=== PATIENT | female | born 1940 | race Caucasian/White ===

== ENCOUNTER 2017-10-05 09:30 | Emergency (ER) | payer MEDICARE ==
[2017-10-05 10:44] LABS: ABS Basophils 0.1 10^3/ul (0-0.2); ABS Eosinophils 0.1 10^3/ul (0-0.6); ABS Lymphocytes 1.8 10^3/ul (1.0-4.8); ABS Monocytes 0.5 10^3/ul (0-0.8); ABS Neutrophils 6.4 10^3/ul (1.5-7.7); ABS Nucleated RBC 0 10^3/ul; Eosinophil % 1.6 % (0-6); Hematocrit 45 % (35-47); Hemoglobin 15.1 g/dl (12.0-16.0); Lymphocyte % 19.7 % (25-47); Mean Corpuscular HGB Conc 34 g/dl (31-36); Mean Corpuscular Hemoglobin 30 pg (27-31); Mean Corpuscular Volume 90 fL (80-97); Mean Platelet Volume 7.1 um3 (7.4-10.4); Nucleated Red Blood Cells % 0.2; Platelet Count 296 10^3/ul (150-450); Red Blood Count 4.98 10^6/ul (4.00-5.40); Red Cell Distribution Width 13 % (10.5-15); White Blood Count 8.9 10^3/ul (3.5-10.8)
[2017-10-05 11:05] LABS: EGFR Non-African American 80.7 (>60)
--- NOTE | 2017-10-05 11:20 | ED ---
Hypertension - HPI Summary HPI Summary: This patient is a 77 year old F presenting to [facility] accompanied by daughter Hayley with a chief complaint of hypertension since last night 10/04/17. Pt administered a clonidine patch last night with worsening symptoms, the prescription started. Pt endorses lightheadedness, dizziness, difficulty ambulating, shakiness, GLASS, constipation. She denies chest pain or pressure. Dr. Cage removed clonidine patch. Pt takes miralax nightly. Endorses constipation. 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 pt missed atenolol 2 days ago, missed two doses. - History of Current Complaint Chief Complaint: EDHypertension Stated Complaint: HIGH BP Time Seen by Provider: 10/05/17 10:00 Hx Obtained From: Patient Onset/Duration: Started Hours Ago Timing: Constant, Lasting Hours Aggravating Factor(s): Other: - Klonadine Alleviating Factor(s): Nothing Associated Signs & Symptoms: Headaches, Weakness, Dizziness - Allergies/Home Medications Allergies/Adverse Reactions: Allergies Allergy/AdvReac Type Severity Reaction Status Date / Time No Known Allergies Allergy Verified 10/05/17 09:46 Home Medications: Home Medications Ascorbic Acid TAB* [Vitamin C TAB*] 500 mg PO DAILY 10/05/17 [History Confirmed 10/05/17] Cholecalciferol TAB* [Vitamin D TAB*] 1,000 unit PO DAILY 10/05/17 [History Confirmed 10/05/17] Hydrochlorothiazide TAB* [Hydrodiuril TAB*] 25 mg PO DAILY 10/05/17 [History Confirmed 10/05/17] Lisinopril TAB* [Prinivil TAB*] 40 mg PO QPM 10/05/17 [History Confirmed ] Vitamin B Complex CAP* [B Complex CAP*] 1 cap PO DAILY 10/05/17 [History Confirmed 10/05/17] cloNIDine 0.1 MG PATCH* [Baiygimz-Lir-7 0.1 mg Patch*] 1 patch TOPICAL WEEKLY 10/05/17 [History Confirmed 10/05/17] PMH/Surg Hx/FS Hx/Imm Hx Cardiovascular History: Reports: Hx Hypertension Musculoskeletal History: Reports: Hx Back Problems Sensory History: Reports: Hx Contacts or Glasses Opthamlomology History: Reports: Hx Contacts or Glasses EENT History: Denies: Hx Deafness Infectious Disease History: No Infectious Disease History: Denies: Traveled Outside the [place] in Last 30 Days - Family History Known Family History: Positive: Cardiac Disease - MS's, Hypertension, Diabetes - Social History Occupation: Retired Lives: Alone Alcohol Use: Rare Substance Use Type: Reports: None Smoking Status (MU): Heavy Every Day Tobacco Smoker Review of Systems Negative: Fever, Chills Negative: Erythema Negative: Sore Throat Negative: Chest Pain Negative: Shortness Of Breath, Cough Positive: Other - constipation. Negative: Abdominal Pain, Vomiting, Nausea Negative: dysuria, hematuria Negative: Myalgia, Edema Negative: Rash Neurological: Other - dizziness, lightheadedness Positive: Headache, Weakness All Other Systems Reviewed And Are Negative: Yes Physical Exam - Summary Physical Exam Summary: Constitutional: Well-developed, Well-nourished, Alert. (-) Distressed Skin: Warm, Dry HENT: Normocephalic; Atraumatic Eyes: Conjunctiva normal Neck: Musculoskeletal ROM normal neck. (-) JVD, (-) Stridor, (-) Tracheal deviation Cardio: Rhythm regular, pulses approximately 100, Heart sounds normal; Intact distal pulses; The pedal pulses are 2+ and symmetric. Radial pulses are 2+ and symmetric. (-) Murmur Pulmonary/Chest wall: Effort normal. (-) Respiratory distress, (-) Wheezes, (-) Rales Abd: Soft, (-), epigastric tenderness, (-) Distension, (-) Guarding, (-) Rebound Musculoskeletal: (-) Edema Lymph: (-) Cervical adenopathy Neuro: Alert, Oriented x3 Psych: Mood and affect Normal Triage Information Reviewed: Yes Vital Signs On Initial Exam: Initial Vitals Temp Pulse Resp BP Pulse Ox 98.7 F 100 19 216/129 97 10/05/17 09:37 10/05/17 09:37 10/05/17 09:37 10/05/17 09:37 10/05/17 09:37 Vital Signs Reviewed: Yes Diagnostics - Vital Signs Vital Signs Temp Pulse Resp BP Pulse Ox 10/05/17 09:37 98.7 F 100 19 216/129 97 - Laboratory Lab Results: Lab Results 10/05/17 10/05/17 10/05/17 Range/Units 10:30 10:30 10:30 WBC 8.9 (3.5-10.8) 10^3/ul RBC 4.98 (4.00-5.40) 10^6/ul Hgb 15.1 (12.0-16.0) g/dl Hct 45 (35-47) % MCV 90 (80-97) fL MCH 30 (27-31) pg MCHC 34 (31-36) g/dl RDW 13 (10.5-15) % Plt Count 296 (150-450) 10^3/ul MPV 7.1 L (7.4-10.4) um3 Neut % (Auto) 71.9 (38-83) % Lymph % (Auto) 19.7 L (25-47) % [place] % (Auto) 6.0 (0-7) % Eos % (Auto) 1.6 (0-6) % Baso % (Auto) 0.8 (0-2) % Absolute Neuts (auto) 6.4 (1.5-7.7) 10^3/ul Absolute Lymphs (auto) 1.8 (1.0-4.8) 10^3/ul Absolute Monos (auto) 0.5 (0-0.8) 10^3/ul Absolute Eos (auto) 0.1 (0-0.6) 10^3/ul Absolute Basos (auto) 0.1 (0-0.2) 10^3/ul Absolute Nucleated RBC 0 10^3/ul Nucleated RBC % 0.2 Sodium 139 (135-145) mmol/L Potassium 3.3 L (3.5-5.0) mmol/L Chloride 99 L (101-111) mmol/L Carbon Dioxide 33 H (22-32) mmol/L Anion Gap 7 (2-11) mmol/L BUN 13 (6-24) mg/dL Creatinine 0.70 (0.51-0.95) mg/dL Est GFR ( Amer) 97.7 (>60) Est GFR (Non-Af Amer) 80.7 (>60) BUN/Creatinine Ratio 18.6 (8-20) Glucose 118 H (70-100) mg/dL Lactic Acid 0.7 (0.5-2.0) mmol/L Calcium 9.8 (8.6-10.3) mg/dL Total Bilirubin 0.60 (0.2-1.0) mg/dL AST 24 (13-39) U/L ALT 16 (7-52) U/L Alkaline Phosphatase 63 (34-104) U/L Troponin I 0.00 (<0.04) ng/mL B-Natriuretic Peptide ( - 100) pg/mL Total Protein 7.2 (6.4-8.9) g/dL Albumin 4.2 (3.2-5.2) g/dL Globulin 3.0 (2-4) g/dL Albumin/Globulin Ratio 1.4 (1-3) 10/05/17 Range/Units 10:30 WBC (3.5-10.8) 10^3/ul RBC (4.00-5.40) 10^6/ul Hgb (12.0-16.0) g/dl Hct (35-47) % MCV (80-97) fL MCH (27-31) pg MCHC (31-36) g/dl RDW (10.5-15) % Plt Count (150-450) 10^3/ul MPV (7.4-10.4) um3 Neut % (Auto) (38-83) % Lymph % (Auto) (25-47) % [place] % (Auto) (0-7) % Eos % (Auto) (0-6) % Baso % (Auto) (0-2) % Absolute Neuts (auto) (1.5-7.7) 10^3/ul Absolute Lymphs (auto) (1.0-4.8) 10^3/ul Absolute Monos (auto) (0-0.8) 10^3/ul Absolute Eos (auto) (0-0.6) 10^3/ul Absolute Basos (auto) (0-0.2) 10^3/ul Absolute Nucleated RBC 10^3/ul Nucleated RBC % Sodium (135-145) mmol/L Potassium (3.5-5.0) mmol/L Chloride (101-111) mmol/L Carbon Dioxide (22-32) mmol/L Anion Gap (2-11) mmol/L BUN (6-24) mg/dL Creatinine (0.51-0.95) mg/dL Est GFR ( Amer) (>60) Est GFR (Non-Af Amer) (>60) BUN/Creatinine Ratio (8-20) Glucose (70-100) mg/dL Lactic Acid (0.5-2.0) mmol/L Calcium (8.6-10.3) mg/dL Total Bilirubin (0.2-1.0) mg/dL AST (13-39) U/L ALT (7-52) U/L Alkaline Phosphatase (34-104) U/L Troponin I (<0.04) ng/mL B-Natriuretic Peptide 366 H ( - 100) pg/mL Total Protein (6.4-8.9) g/dL Albumin (3.2-5.2) g/dL Globulin (2-4) g/dL Albumin/Globulin Ratio (1-3) Result Diagrams: 10/05/17 10:30 10/05/17 10:30 Lab Statement: Any lab studies that have been ordered have been reviewed, and results considered in the medical decision making process. - EKG 1009 Cardiac Rate: NL - 89 EKG Rhythm: Sinus Rhythm ST Segment: Normal EKG Interpretation: No STEMI Re-Evaluation - Re-Evaluation First Eval Re-Evaluation Time: 11:25 Change: Unchanged Comment: Discussed new blood pressure med, pt preferred trial med in ED, wants to avoid observation if possible. Second Eval Re-Evaluation Time: 14:06 Change: Improved Comment: BP now 155 systolic, lower when pt does not pay attention to it. Hypertension Course/Dx - Course Course Of Treatment: Discussed new blood pressure med, pt preferred trial med in ED, wants to avoid observation if possible. EKG revealed nl sinus rythym 89 , no STEMI. PT shows elevated BNP, glucose. Pt was given metoprolol. Metoprolol appears effective, pt asymptomatic in the ED. BP down to 155 systolic , even lower when pt does not pay attention to it. - Diagnoses Provider Diagnoses: Uncontrolled hypertension, Elevated brain natriuretic peptide (BNP) level Discharge - Sign-Out/Discharge Documenting (check all that apply): Patient Departure - Discharge Plan Condition: Stable Prescriptions: Metoprolol Tartrate TAB* [Lopressor TAB*] 50 mg PO BID #28 tab Patient Education Materials: Hypertension (ED) Referrals: Ayesha Feldman MD [Primary Care Provider] - 4 Days Additional Instructions: RETURN TO EMERGENCY DEPARTMENT FOR ANY CHANGING OR WORSENING SYMPTOMS. - Billing Disposition and Condition Condition: STABLE
[2017-10-05] MEDS ORDERED: Metoprolol Tartrate TAB* 50 mg PO ONE (11:23)
[2017-10-05 15:49] VITALS: BP 166/98
== END 2017-10-05 15:51 | disposition home or self-care (01) ==
LOC: ED 09:30
DX: R51 Headache (principal); R53.1 Weakness; R42 Dizziness and giddiness; K59.00 Constipation, unspecified; F17.210 Nicotine dependence, cigarettes, uncomplicated; I10 Essential (primary) hypertension; R79.89 Other specified abnormal findings of blood chemistry
CPT/HCPCS: 36415; 80053; 83605; 83880; 84484; 85025; 93005; 99282; A9270-GY

== ENCOUNTER 2018-10-04 14:25 | Emergency (ER) | payer MEDICARE ==
--- NOTE | 2018-10-04 15:00 | UC ---
Shortness of Breath HPI - HPI Summary HPI Summary: 1 WEEK OF PROGRESSIVELY WORSENING SHORTNESS OF BREATH, CHEST TIGHTNESS AND FATIGUE. HAS SOME SINUS PRESSURE SO THOUGHT SHE WAS COMING DOWN WITH BRONCHITIS ALTHOUGH SHE HAS NO COUGH. FEELS INTERMITTENTLY NAUSEATED AND SWEATY. HAS A H/O HTN AND AFIB. IS ON ELIQUIS. - History of Current Complaint Chief Complaint: UCRespiratory Stated Complaint: SHORT OF BREATH Time Seen by Provider: 10/04/18 14:37 Hx Obtained From: Patient Onset/Duration: Gradual Onset, Lasting Days, Still Present Timing: Constant Current Severity: Moderate Dyspnea At: Rest Aggravating Factors: Nothing Alleviating Factors: Nothing Associated Signs & Symptoms: Positive: Chest Pain Unrelated to Cough, Nasal Congestion. Negative: Fever - Allergy/Home Medications Allergies/Adverse Reactions: Allergies Allergy/AdvReac Type Severity Reaction Status Date / Time acetaminophen Allergy Tachycardia Verified 10/04/18 14:34 Home Medications: Home Medications Aspirin/Caffeine [Anacin 400-32 mg Tablet] 0.5 - 1 tab PO DAILY PRN 10/04/18 [ History Confirmed 10/04/18] Bismuth Subsalicylate [Pepto-Bismol] 1 tab PO DAILY 10/04/18 [History Confirmed 10/04/18] Cbd Oil 2 drop PO ONCE PRN 10/04/18 [History Confirmed 10/04/18] Docusate Sodium 1 tab PO DAILY 10/04/18 [History Confirmed 10/04/18] Naproxen Sodium [Aleve] 1 - 2 tab PO BID PRN 10/04/18 [History Confirmed ] Polyethylene Glycol 3350 [Miralax] 1 dose PO DAILY PRN 10/04/18 [History Confirmed 10/04/18] Simethicone [Gas-X] 1 tab PO DAILY 10/04/18 [History Confirmed 10/04/18] diphenhydrAMINE HCl [Benadryl Allergy] 1 tab PO DAILY PRN 10/04/18 [History Confirmed 10/04/18] PMH/Surg Hx/FS Hx/Imm Hx Cardiovascular History: Hypertension, Atrial Fibrillation - Surgical History Surgical History: Yes Surgery Procedure, Year, and Place: NECK SUGERY WITH HARDWARE. LEFT WRIST WITH HARDWARE. BREAST IMPLANTS. BILATERAL CATARACTS. VEIN IN LEFT LEG REMOVED. APPENDIX. TUMOR REMOVED FROM ABDOMIN DURING . MOLES REMOVED. HEMMORHOID SURGERY - Family History Known Family History: Positive: Cardiac Disease - CO's, Hypertension, Diabetes - Social History Alcohol Use: Rare Substance Use Type: None Smoking Status (MU): Former Smoker Amount Used/How Often: 10 cigarettes/day Review of Systems All Other Systems Reviewed And Are Negative: Yes Constitutional: Positive: Fatigue ENT: Positive: Sinus Congestion Respiratory: Positive: Shortness Of Breath. Negative: Cough Cardiovascular: Positive: Chest Pain Gastrointestinal: Positive: Nausea Genitourinary: Positive: Negative Physical Exam Triage Information Reviewed: Yes Appearance: Well-Appearing, No Pain Distress, Well-Nourished Vital Signs: Initial Vital Signs Temp 97.9 F 10/04/18 14:27 Pulse 97 10/04/18 14:27 Resp 18 10/04/18 14:27 BP 196/97 10/04/18 14:27 Pulse Ox 98 10/04/18 14:27 Vital Signs Reviewed: Yes Eyes: Positive: Conjunctiva Clear ENT: Positive: Hearing grossly normal Neck: Positive: Supple Respiratory Exam: Normal Cardiovascular: Positive: Other: - IRREGULARLY IRREGULAR Abdomen Description: Positive: Soft Musculoskeletal: Positive: No Edema Neurological: Positive: Muscle Tone Normal Psychological: Positive: Normal Response To Family, Age Appropriate Behavior Skin: Negative: Rashes Diagnostics - EKG Cardiac Rate: NL - 95BPM Cardiac Rhythm: AFib: Old Shortness of Breath Dx - Course Course Of Treatment: PT IN AFIB. SYMPTOMATIC - FEELS SOB AT REST, HAS ORTHOPNEA, CHEST TIGHTNESS. BP DANGEROUSLY ELEVATED. TO [facility] BY AMBULANCE. - Differential Dx/Diagnosis Provider Diagnosis: Atrial fibrillation, Shortness of breath - Physician Notification/Consults Discussed Patient Care With: Veronica Helms - TO [facility] BY AMBULANCE Time Discussed With Above Provider: 14:57 Instructed by Provider To: MD Will See In ED Discharge - Sign-Out/Discharge Documenting (check all that apply): Patient Departure All imaging exams completed and their final reports reviewed: No Studies - Discharge Plan Condition: Stable Disposition: TRANS HIGHER LVL OF CARE FAC Referrals: Ayesha Feldman MD [Primary Care Provider] - - Billing Disposition and Condition Condition: STABLE Disposition: Trans Higher Lvl of Care Fac
[2018-10-04 15:08] VITALS: BP 200/100
== END 2018-10-04 15:17 | disposition short-term general hospital (02) ==
LOC: UCEAST 14:25
DX: I48.91 Unspecified atrial fibrillation (principal); R06.02 Shortness of breath; I10 Essential (primary) hypertension; Z87.891 Personal history of nicotine dependence; Z79.82 Long term (current) use of aspirin; Z79.01 Long term (current) use of anticoagulants
CPT/HCPCS: 93005; 99213; G0463

== ENCOUNTER 2018-10-04 15:41 | Emergency (ER) | payer MEDICARE ==
[2018-10-04] MEDS ORDERED: Labetalol IV* 5 MG/ML 20 ML VIAL IV PUSH ONE (16:00)
[2018-10-04] MEDS ORDERED: Aspirin 81 mg CHEW TAB* 81 MG TAB.CHEW PO ONE (16:01)
--- NOTE | 2018-10-04 16:01 | ED ---
HPI Chest Pain - HPI Summary HPI Summary: The patient is an 78 y/o F presenting to [facility] with a chief complaint of gradual onset left anterior CP over the last few days. She additionally reports SOB, diaphoresis, dizziness, blurred vision, nausea, fevers, chills, rhinorrhea , ear pain, and headache. She denies cough and sore throat. The aching pain is currently rate 2/10 in severity. There are no aggravating or alleviating factors. She also notes that her BP has been high despite taking medications. States she has a learning development specialist appointment tomorrow with Dr. Almaraz. Hx of Afib ( treated with Eliquis), HTN, spinal stenosis. No cardiac surgery. FHx of cardiac disease with IN, HTN, DM. Former smoker, rare EtOH, no substance use. - History of Current Complaint Chief Complaint: EDChestPainROMI Time Seen by Provider: 10/04/18 15:54 Hx Obtained From: Patient Onset/Duration: Started Days Ago, Still Present Timing: Lasting Days Initial Severity: Mild Current Severity: Mild Pain Intensity: 2 Pain Scale Used: 0-10 Numeric Chest Pain Location: Left Anterior Chest Pain Radiates: No Character: Dull/Aching Aggravating Factor(s): Nothing Alleviating Factor(s): Nothing Associated Signs and Symptoms: Positive: Chest Pain, Headaches, Dizziness, Shortness of Breath, Fever, Chills, Nausea, Other: - POSITIVE: rhinorrhea; NEGATIVE: sore throat. Negative: Cough - Allergy/Home Medications Allergies/Adverse Reactions: Allergies Allergy/AdvReac Type Severity Reaction Status Date / Time acetaminophen Allergy Tachycardia Verified 10/04/18 14:34 PMH/Surg Hx/FS Hx/Imm Hx Endocrine/Hematology History: Denies: Hx Diabetes Cardiovascular History: Reports: Hx Hypertension Denies: Hx Hypercholesterolemia, Hx Pacemaker/ICD Comment Only: Other Cardiovascular Problems/Disorders - Taking Eliquis History: Denies: Hx Renal Disease Musculoskeletal History: Reports: Hx Back Problems Sensory History: Reports: Hx Contacts or Glasses Denies: Hx Deafness, Hx Hearing Aid Opthamlomology History: Reports: Hx Contacts or Glasses Neurological History: Reports: Other Neuro Impairments/Disorders - spinal stenosis, PAIN CLINIC PT Psychiatric History: Reports: Hx Panic Disorder - PANIC ATTACKS - Surgical History Surgery Procedure, Year, and Place: NECK SUGERY WITH HARDWARE. LEFT WRIST WITH HARDWARE. BREAST IMPLANTS. BILATERAL CATARACTS. VEIN IN LEFT LEG REMOVED. APPENDIX. TUMOR REMOVED FROM ABDOMIN DURING . MOLES REMOVED. HEMMORHOID SURGERY Infectious Disease History: No Infectious Disease History: Denies: Traveled Outside the [place] in Last 30 Days - Family History Known Family History: Positive: Cardiac Disease - IN's, Hypertension, Diabetes - Social History Alcohol Use: Rare Hx Substance Use: No Substance Use Type: Reports: None Hx Tobacco Use: No Smoking Status (MU): Former Smoker Amount Used/How Often: 10 cigarettes/day Review of Systems Positive: Fever, Chills, Skin Diaphoresis Positive: Blurred Vision Positive: Ear Ache, Nasal Discharge. Negative: Sore Throat Positive: Chest Pain - left anterior Positive: Shortness Of Breath. Negative: Cough Positive: Nausea. Negative: Vomiting Neurological: Other - dizziness Positive: Headache All Other Systems Reviewed And Are Negative: Yes Physical Exam - Summary Physical Exam Summary: VITAL SIGNS: Reviewed. GENERAL: Patient is a well-developed and nourished female who is lying comfortable in the stretcher. Patient is not in any acute respiratory distress. HEAD AND FACE: No signs of trauma. No ecchymosis, hematomas or skull depressions. No sinus tenderness. EYES: PERRLA, EOMI x 2, No injected conjunctiva, no nystagmus. EARS: Hearing grossly intact. Ear canals and tympanic membranes are within normal limits. MOUTH: Oropharynx within normal limits. NECK: Supple, trachea is midline, no adenopathy, no JVD, no carotid bruit, no c- spine tenderness, neck with full ROM. CHEST: Symmetric, no tenderness at palpation. LUNGS: Clear to auscultation bilaterally. No wheezing or crackles. CVS: Regular rate and rhythm, S1 and S2 present, no murmurs or gallops appreciated. ABDOMEN: Soft, non-tender. No signs of distention. No rebound, no guarding, and no masses palpated. Bowel sounds are normal. EXTREMITIES: FROM in all major joints, no edema, no cyanosis or clubbing. NEURO: Alert and oriented x 3. No acute neurological deficits. Speech is normal and follows commands. SKIN: Dry and warm. Triage Information Reviewed: Yes Vital Signs On Initial Exam: Initial Vitals Temp Pulse Resp BP Pulse Ox 97.8 F 92 18 198/112 98 10/04/18 15:48 10/04/18 15:48 10/04/18 15:48 10/04/18 15:48 10/04/18 15:48 Vital Signs Reviewed: Yes Diagnostics - Vital Signs Vital Signs Temp Pulse Resp BP Pulse Ox 10/04/18 15:48 97.8 F 92 18 198/112 98 - Laboratory Result Diagrams: 10/04/18 16:23 10/04/18 16:23 Lab Statement: Any lab studies that have been ordered have been reviewed, and results considered in the medical decision making process. - Radiology CXR Radiology Interpretation Completed By: Radiologist Summary of Radiographic Findings: No active cardiopulmonary disease is noted. ED physician has reviewed this radiology report. - EKG 1549 Cardiac Rate: Other Rate - 95 BPM EKG Rhythm: Atrial Fibrillation Summary of EKG Findings: No ST elevations. Re-Evaluation - Re-Evaluation First Eval Re-Evaluation Time: 17:30 Change: Improved Comment: The patient's chest pain has resolved. Chest Pain Course/Dx - Course Assessment/Plan: The patient is an 78 y/o F presenting to [facility] with a chief complaint of gradual onset left anterior CP over the last few days. She additionally reports SOB, diaphoresis, dizziness, blurred vision, nausea, fevers , chills, rhinorrhea, ear pain, and headache. She denies cough and sore throat. The aching pain is currently rate 2/10 in severity. There are no aggravating or alleviating factors. She also notes that her BP has been high despite taking medications. States she has a learning development specialist appointment tomorrow with Dr. Almaraz. Hx of Afib (treated with Eliquis), HTN, spinal stenosis. No cardiac surgery. FHx of cardiac disease with IN, HTN, DM. Former smoker, rare EtOH, no substance use. In the ED course, the patient was placed on a panel monitor, IV access was obtained, and IV fluids were started. Blood work without any significant abnormality except for WBCs of 11.3, INR of 1.23, PTT of 39.3, chloride of 98, glucose of 101, and BNP of 285. The patients first troponin is 0.00. EKG shows a normal sinus rhythm without any significant elevations. Chest x-ray impression: No active cardiopulmonary disease is noted. In the ED course, the patients blood pressure is elevated; therefore, the patient was given 1 dose of labetalol. The patients chest pain and hypertension has resolved. Right now, the patient is asymptomatic the chest pain 0 out of 10. Blood pressure is 131/78. Patient is awaiting the second troponin 4 hours apart , therefore the patient will be signed out to Dr. Sims to follow-up the troponin. If its negative, the patient can be discharged home with follow-up with PCP. - Diagnoses Provider Diagnoses: Chest pain, Uncontrolled hypertension Discharge - Sign-Out/Discharge Documenting (check all that apply): Sign-Out Patient Signing out patient TO: Kimo Sims - Patient is a sign-out at shift change at 1900 on 10/04/2018, from Dr. Lawson to Dr. Sims, pending repeat troponin and disposition. Patient Received Moderate/Deep Sedation with Procedure: No - Discharge Plan Referrals: Ayesha Feldman MD [Primary Care Provider] - - Attestation Statements Document Initiated by Shy: Yes Documenting Scribe: Christa Powell Provider For Whom Shy is Documenting (Include Credential): Dr. Santino Lawson MD Scribe Attestation: Christa Flores scribed for Dr. Santino Lawson MD on 10/04/18 at 1830. Scribe Documentation Reviewed: Yes Provider Attestation: The documentation as recorded by the Christa rodriguez accurately reflects the service I personally performed and the decisions made by me, Dr. Santino Lawson MD Status of Scribgalina Document: Ready
[2018-10-04 16:48] LABS: INR 1.23 (0.82-1.09)
[2018-10-04 16:50] LABS: ABS Basophils 0.1 10^3/ul (0-0.2); ABS Eosinophils 0.3 10^3/ul (0-0.6); ABS Monocytes 0.8 10^3/ul (0-0.8); ABS Neutrophils 8.2 10^3/ul (1.5-7.7); Eosinophil % 2.4 %; Hematocrit 43 % (35-47); Hemoglobin 14.4 g/dL (12.0-16.0); Lymphocyte % 17.9 %; Mean Corpuscular HGB Conc 34 g/dL (31-36); Mean Corpuscular Hemoglobin 31 pg (27-31); Mean Corpuscular Volume 93 fL (80-97); Mean Platelet Volume 7.2 fL (7.4-10.4); Platelet Count 341 10^3/uL (150-450); Red Blood Count 4.59 10^6 /uL (3.70-4.87); Red Cell Distribution Width 13 % (10-15); White Blood Count 11.3 10^3/uL (3.5-10.8)
[2018-10-04 17:00] LABS: Albumin 4.2 g/dL (3.2-5.2); Albumin/Globulin Ratio 1.5 (1-3); BUN/Creatinine Ratio 25.4 (8-20); Calcium 9.9 mg/dL (8.6-10.3); EGFR African American 95.8 (>60); EGFR Non-African American 79.2 (>60); Globulin 2.8 g/dL (2-4); Potassium 3.9 mmol/L (3.5-5.0); Total Bilirubin 0.5 mg/dL (0.2-1.0)
[2018-10-04 17:16] LABS: CKMB ng/mL 2.6 ng/mL (0.6-6.3)
--- NOTE | 2018-10-04 19:06 | ED ---
Progress - Progress Note Progress Note: Pt is a signout from Dr. Lawson at 1900 on 10/04/18 pending second troponin results. Re-Evaluation - Re-Evaluation First Eval Re-Evaluation Time: 17:30 Change: Improved Course/Dx - Course Course Of Treatment: Pt is a signout from Dr. Lawson at 1900 on 10/04/18 pending second troponin results. The pt's second troponin is 0.00. The pt will be d/c' ed with a dx of chest pain and uncontrolled hypertension, and she is stable and agreeable with this plan. - Diagnoses Provider Diagnoses: Chest pain, Uncontrolled hypertension Discharge - Sign-Out/Discharge Documenting (check all that apply): Patient Departure, Receiving Sign-Out Receiving patient FROM: Santino Lawson Patient Received Moderate/Deep Sedation with Procedure: No - Discharge Plan Condition: Good Disposition: HOME Patient Education Materials: Chest Pain (ED) Print Language: CROATIAN Referrals: Ayesha Feldman MD [Primary Care Provider] - 3 Days Additional Instructions: Please follow up with your primary care provider within the next 1-3 days. Return to the emergency department with any new or worsening symptoms. - Attestation Statements Document Initiated by Scribe: Yes Documenting Scribe: Shirin Sylvester Provider For Whom Scribe is Documenting (Include Credential): Kimo Sims MD. Scribe Attestation: Shirin Flores, scribed for Kimo Sims MD. on 10/04/18 at 1925. Status of Scribe Document: Ready
[2018-10-04 20:00] VITALS: BP 128/95
== END 2018-10-04 20:00 | disposition home or self-care (01) ==
LOC: ED 15:41
DX: R07.89 Other chest pain (principal); I10 Essential (primary) hypertension; I48.91 Unspecified atrial fibrillation; Z79.01 Long term (current) use of anticoagulants; R51 Headache; R42 Dizziness and giddiness; R06.02 Shortness of breath; R50.9 Fever, unspecified; R11.0 Nausea; R61 Generalized hyperhidrosis; J34.89 Other specified disorders of nose and nasal sinuses; Z88.6 Allergy status to analgesic agent; Z87.891 Personal history of nicotine dependence
CPT/HCPCS: 36415; 71045; 80053; 82550; 82553; 83880; 84443; 84484; 85025; 85610; 85730; 93005; 96374; 99283; A9270-GY

== ENCOUNTER 2019-01-01 11:00 | Observation (INO) | payer MEDICARE ==
[2019-01-01] MEDS ORDERED: NS 0.9% 1000 ML** 1,000 ML IV ONE (11:06)
[2019-01-01] MEDS ORDERED: cefTRIAXone(*) 1 GM in NS 0.9% 50 ML* 50 ML IVPB ONE (11:10)
--- OUTSIDE RECORDS SUMMARY | 2019-01-01 11:10 | XMS REPORT | Continuity of Care Document ---
:1940 External Reference #:[id number] Author Name Zack Lopez M.D. (transmitted by agent of provider Christa Meyers) Address [address] [place] [address] Care Team Providers Name Role Phone Ayesha Singh MD - Family Medicine Care Team Information Cotton Header [phone] Problems Active Problems Provider Date Atherosclerosis of renal artery Zack Lopez M.D. Onset: 11/15/2018 Atherosclerosis of arteries of the Zack Lopez M.D. Onset: 11/15/2018 extremities Social History Type Date Description Comments Sex Unknown Tobacco Use Start: Unknown Light tobacco smoker (10 or fewer cigarettes/day) Smoking Status Reviewed: 11/15/18 Light tobacco smoker (10 or fewer cigarettes/day) ETOH Use Occasionally consumes alcohol Recreational Drug Use Denies Drug Use Tobacco Use Start: Unknown End: Patient is a former smoker quit 09/30/18 Unknown Exercise Type/Frequency Walks daily Exercise Type/Frequency stretching Exercise Type/Frequency Does housework daily Allergies, Adverse Reactions, Alerts Active Allergies Reaction Severity Comments Date Acetaminophen tachycardia 01/23/2018 Clonidine 02/07/2018 Amlodipine 03/08/2018 Lisinopril cough 03/08/2018 Medications Active Medications SIG Qnty Indications Ordering Date Provider Labetalol HCL Take one tablet by 30tabs I48.91 Jackson [place] 100mg Tablets mouth every 12 Hobbs, DO 9 hours as needed FACC for palpitations or elevated heart rate over 100 beats a minute Irbesartan take one tablet by 90tabs I10 Jackson [place]on 300mg Tablets mouth daily Hobbs, DO 8 FACC Spironolactone 1 by mouth every 90tabs I10 Jackson S. 25mg Tablets day Hobbs, DO 8 FACC Eliquis 1 tablet by mouth 60tabs I48.91 Jackson S. 2.5mg Tablets twice a day. Hobbs, DO 8 FACC Aleve 1-2 by mouth twice Unknown 220mg Capsules a day as needed 0 Anacin take 1/2 to 1 Unknown 400-32mg Tablets ttablet daily as 0 needed for back pain or headache Benadryl Allergy 1 tab as needed Unknown 25mg Capsules 0 Docusate Sodium 1 tab every 12 Unknown 100mg Capsules hours as needed 0 for constipation Hydrochlorothiazide 1 by mouth every Unknown 25mg day 0 Tablets Metoprolol Tartrate take 1 tablet PO Unknown 50mg 2x day at 8 am/8pm 0 Tablets along with 25mg as directed Miralax 17 gram with h20 Unknown 3350NF Packet once a day 0 Vitamin C 1 by mouth every Unknown 500mg Chewtabs day 0 Vitamin D3 1 by mouth every Unknown 1000Unit Capsules day 0 Pepto-Bismol give 10ml by mouth Unknown 262mg/15ML as needed for each 0 Suspension loose stool Gas-X Ultra Strength Unknown 180mg 0 Capsules Immunizations Description No Information Available Vital Signs Date Vital Result Comment 11/15/2018 11:30am Height 63 inches 5'3" Weight 152.25 lb with sandals Heart Rate 78 /min left rad irregular BP Systolic Sitting 154 mmHg Lue reg cuff rechecked x2 BP Diastolic Sitting 100 mmHg Lue reg cuff rechecked x2 BMI (Body Mass Index) 27.0 kg/m2 10/05/2018 2:07pm Height 63 inches 5'3" Weight 152.00 lb Heart Rate 88 /min BP Systolic Sitting 134 mmHg Lue reg cuff BP Diastolic Sitting 82 mmHg Lue reg cuff BP Systolic Standing 132 mmHg Lue BP Diastolic Standing 86 mmHg Lue Respiratory Rate 18 /min BMI (Body Mass Index) 26.9 kg/m2 Ejection Fraction 50-55% 02/14/18 Results Description No Information Available Procedures Date Code Description Status 10/05/2018 17395 EKG Tracing & Interpretation Completed Medical Devices Description No Information Available Encounters Type Date Location Provider Dx Diagnosis Office Visit 11/15/2018 [facility] Zack Lopez, I70.223 [facility] [place] 11:15a [facility] Luana arteries of extrm w rest pain, bilateral legs I70.1 Atherosclerosis of renal artery Office Visit 10/05/2018 2:40p [facility] Jackson Pitts I48.91 Unspecified atrial [facility] Hobbs, DO fibrillation FAC Z72.0 Tobacco use I11.9 Hypertensive heart disease without heart failure I73.9 Peripheral vascular disease, unspecified I27.20 Pulmonary hypertension, unspecified I10 Essential (primary) hypertension Assessments Date Code Description Provider 11/15/2018 I70.223 Atherosclerosis of [place] arteries of Zack Lopez M.D. extremities with rest pain, bilateral legs 11/15/2018 I70.1 Atherosclerosis of renal artery Zack Lopez M.D. 10/05/2018 I48.91 Unspecified atrial fibrillation Jackson Hobbs, DO FAC 10/05/2018 Z72.0 Tobacco use Jackson Hobbs, DO FACC 10/05/2018 I11.9 Hypertensive heart disease without heart Jackson Hobbs, DO FACC failure 10/05/2018 I73.9 Peripheral vascular disease, unspecified Jackson Hobbs, DO FACC 10/05/2018 I27.20 Pulmonary hypertension, unspecified Jackson [place] Hobbs, DO FACC 10/05/2018 I10 Essential (primary) hypertension Jackson Hobbs, DO [facility] Plan of Treatment 11/15/2018 - Zack Lopez M.D.I70.223 Atherosclerosis of [place] arteries of extremities with rest pain, bilateral legsNew Xrays:Cta Abd Aorta & Runoff, Ordered: 11/15/18Comments:The following was discussed with the patient and her daughter Hayley during consultation:The patient's symptoms are consistent with lower extremity arterial insufficiency. On physical examination I cannot palpate either common femoral artery indicating either bilateral iliac artery occlusion or potentially occlusion of the infrarenal abdominal aorta.The patient reports smoking "a few puffs of his cigarette" daily. I advised her of the direct causal relationship between cigarette smoking and vasculopathy and encouraged her to quit smoking completely.As discussed with the patient and her daughter, the next best diagnostic test in this situation is CT aortography with runoff.I70.1 Atherosclerosis of renal arteryComments:The patient has hypertension refractory to 5 antihypertensive medications and is clearly a vasculopath. I have a suspicion the patient's hypertension is being exacerbated by renal artery stenosis. The same CTA with runoff ordered for the lower extremity claudication will also provide information about the degree of vasculopathy of the renal arteries.As I discussed with the patient she potentially is a candidate for revascularization of the renal arteries which may cause her to at least reduce the number of antihypertensive she is currently taking and/or achieve adequate blood pressure control. Functional Status Description No Information Available Mental Status Description No Information Available Referrals Refer to Reason for Referral Status Appt Date Zack Lopez MD ? neurogenic vs. vascular claudication Sent 11/15/[address] [address] [phone]
--- NOTE | 2019-01-01 11:11 | ED ---
Dizziness - HPI Summary HPI Summary: The patient is an 78 y/o M arriving by ambulance to [facility] with a chief complaint of sudden onset dizziness and hypotension occurring minutes prior to arrival. EMS reports that she had been at her dentists office for repair of an abscessed tooth when she was sitting in the waiting room and became dizzy. She was helped to the floor, and when EMS arrived, her blood pressure was 65/36 mmHg. While she was conscious at the time, she was not mentating well as she became more unresponsive with the blood pressure decreasing to 55/43 mmHg. EMS administered 2L fluids with improvement in the patients symptoms. She is still experiencing some dizziness now. She denies any chest pain, shortness of breath , headache, cough, sore throat, or diarrhea. She notes upper lip swelling that she is unsure of the origin. Currently, her symptoms are rated 10/10 in severity. She states that she didnt take her blood pressure medications this morning because she took her blood pressure and it was in the 80s systolic. PMHx : HTN, degenerative disc disease, spinal stenosis, panic disorder, neck surgery. FHx: cardiac disease, [place], HTN, DM. Former smoker, rare EtOH, no substance use. Medications reviewed. Allergies noted. - History Of Current Complaint Stated Complaint: DIZZY / CHANGE IN REPSONSIVENESS PER EMS Hx Obtained From: Patient, EMS Onset/Duration: Still Present, Suddenly Timing: Minutes Severity Initially: Severe Severity Currently: Mild Character: Weak, Dizzy Aggravating Factor(s): Nothing Alleviating Factor(s): Other - EMS giving fluids Associated Signs And Symptoms: Positive: Other: - upper lip swelling. Negative: headache, cough, sore throat. Negative: Diarrhea, Chest Pain, SOB - Allergies/Home Medications Allergies/Adverse Reactions: Allergies Allergy/AdvReac Type Severity Reaction Status Date / Time acetaminophen Allergy Tachycardia Verified 01/01/19 11:15 amlodipine AdvReac Unknown Verified 01/02/19 15:33 Reaction Details clonidine AdvReac Unknown Verified 01/02/19 15:33 Reaction Details lisinopril AdvReac Unknown Verified 01/02/19 15:33 Reaction Details Home Medications: Home Medications Bismuth Subsalicylate [Pepto-Bismol] 525 mg PO DAILY PRN 01/01/19 [History Confirmed 01/01/19] Metoprolol Tartrate TAB* [Lopressor TAB*] 75 mg PO QAM 01/01/19 [History Confirmed 01/01/19] Metoprolol Tartrate TAB* [Lopressor TAB*] 100 mg PO QPM 01/01/19 [History Confirmed 01/01/19] PMH/Surg Hx/FS Hx/Imm Hx Endocrine/Hematology History: Denies: Hx Diabetes Cardiovascular History: Reports: Hx Hypertension Denies: Hx Hypercholesterolemia, Hx Pacemaker/ICD Comment Only: Other Cardiovascular Problems/Disorders - Taking Eliquis History: Denies: Hx Renal Disease Musculoskeletal History: Reports: Hx Back Problems - degenerative disc disease Sensory History: Reports: Hx Contacts or Glasses Denies: Hx Deafness, Hx Hearing Aid Opthamlomology History: Reports: Hx Contacts or Glasses Neurological History: Reports: Other Neuro Impairments/Disorders - spinal stenosis, PAIN CLINIC PT Psychiatric History: Reports: Hx Panic Disorder - PANIC ATTACKS - Surgical History Surgical History: Yes Surgery Procedure, Year, and Place: NECK SUGERY WITH HARDWARE. LEFT WRIST WITH HARDWARE. BREAST IMPLANTS. BILATERAL CATARACTS. VEIN IN LEFT LEG REMOVED. APPENDIX. TUMOR REMOVED FROM ABDOMIN DURING . MOLES REMOVED. HEMMORHOID SURGERY Infectious Disease History: No Infectious Disease History: Denies: Traveled Outside the [place] in Last 30 Days - Family History Known Family History: Positive: Cardiac Disease - [place]'s, Hypertension, Diabetes - Social History Alcohol Use: Rare Hx Substance Use: No Substance Use Type: Reports: None Hx Tobacco Use: No Smoking Status (MU): Former Smoker Type: Cigarettes Amount Used/How Often: 10 cigarettes/day Review of Systems Positive: Other - upper lip swelling. Negative: Sore Throat Negative: Chest Pain Negative: Shortness Of Breath, Cough Negative: Abdominal Pain, Diarrhea Neurological: Other - dizziness, decreased responsiveness (resolved) Negative: Headache All Other Systems Reviewed And Are Negative: Yes Physical Exam - Summary Physical Exam Summary: VITAL SIGNS: Reviewed. Hypertensive. GENERAL: Patient is a well-developed and nourished elderly female who is lying comfortable in the stretcher. She appears to be very drowsy. Patient is not in any acute respiratory distress. HEAD AND FACE: No signs of trauma. No ecchymosis, hematomas or skull depressions. No sinus tenderness. EYES: PERRLA, EOMI x 2, No injected conjunctiva, no nystagmus. EARS: Hearing grossly intact. Ear canals and tympanic membranes are within normal limits. MOUTH: Multiple missing teeth. Swelling of the upper lip on the left side of the face. Otherwise, the oropharynx within normal limits. NECK: Supple, trachea is midline, no adenopathy, no JVD, no carotid bruit, no c- spine tenderness, neck with full ROM. CHEST: Symmetric, no tenderness at palpation. Breast implants. LUNGS: Clear to auscultation bilaterally. No wheezing or crackles. CVS: Regular rate and rhythm, S1 and S2 present, no murmurs or gallops appreciated. ABDOMEN: Soft, non-tender. No signs of distention. No rebound, no guarding, and no masses palpated. Bowel sounds are normal. EXTREMITIES: FROM in all major joints, no edema, no cyanosis or clubbing. NEURO: Alert and oriented x 3. No acute neurological deficits. Speech is normal and follows commands. SKIN: Dry and warm. GCS: 15. Triage Information Reviewed: Yes Vital Signs Reviewed: Yes - [place] Coma Scale Best Eye Response: 4 - Spontaneous Best Motor Response: 6 - Obeys Commands Best Verbal Response: 5 - Oriented Coma Scale Total: 15 Procedures - Sedation Patient Received Moderate/Deep Sedation with Procedure: No Diagnostics - Laboratory Result Diagrams: 01/02/19 07:41 01/02/19 07:41 Lab Statement: Any lab studies that have been ordered have been reviewed, and results considered in the medical decision making process. - Radiology Chest X-Ray Radiology Interpretation Completed By: Radiologist Summary of Radiographic Findings: Impression: Findings suggestive of COPD, no evidence for acute disease. ED physician has reviewed this report. - CT Maxillofacial CT CT Interpretation Completed By: Radiologist Summary of CT Findings: Impression: 1. Periapical abscess of the left second maxillary incisor with premaxillary soft tissue phlegmon. No large drainable fluid collection is identified. 2. Additional treated and untreated dental disease as above. ED physician has reviewed this report. - EKG 1105 Cardiac Rate: Other Rate - 93 bpm EKG Rhythm: Atrial Fibrillation EKG Comparison: No Significant Change - Similar to previous taken on 10/04/18. Summary of EKG Findings: EKG at 1105 reveals atrial fibrillation at [address] depressions in II, III, aVF, V4, V5, and V6. No ST elevations. ED physician has reviewed and interpreted this EKG. Re-Evaluation - Re-Evaluation First Eval Re-Evaluation Time: 13:45 Change: Improved Comment: Patient is still experiencing elevated blood pressure, but she is feeling better. Dizzy Course/Dx - Course Assessment/Plan: Patient is an 78 y/o F arriving by ambulance following a severe dizzy spell while in the waiting room at the dentist's office for which she had an appointment for an abscessed tooth. She denies any chest pain, shortness of breath, headache, cough, sore throat, or diarrhea, but she does have upper lip swelling. Blood work without any significant abnormality except for WBCs of 11.5, hemoglobin of 11.5, absolute neutrophils of 8.6, glucose of 117, calcium of 8.1, magnesium of 1.4, CRP of 20.29, BNP of 286, total protein of 4.9, and TSH of 3.08. UA negative for UTI. Chest x-ray impression: Findings suggestive of COPD, no evidence for acute disease. EKG shows atrial fibrillation at [address] elevations. She has ST depressions in II, III, aVF, V4, V5, and V6. Upon arrival to the emergency department, the patient was hypotensive; therefore, the patient was administered 2 L of IV fluids. I also gave the patient Rocephin since the patient has a dental abscess. The patient is hemodynamically stable at this point. However, the patient reports she is very weak and slightly confused. Facial CT IMPRESSION: 1. Periapical abscess of the left second maxillary incisor with premaxillary soft tissue phlegmon. No large drainable fluid collection is identified. 2. Additional treated and untreated dental disease as above. I discussed my physical exam and test results with Dr. Cohen from the hospitalist services, and she agrees to admit patient to his services. Patient is hemodynamically stable alert and oriented x 3. - Diagnoses Provider Diagnoses: Syncope, Hypotension - Provider Notifications Discussed Care Of Patient With: Augusta Cohen - hospitalist Time Discussed With Above Provider: 14:00 Instructed by Provider To: Admit As Observation - I discussed the patients case with Dr. Cohen, who accepts the patient for admission. Discharge ED - Sign-Out/Discharge Documenting (check all that apply): Patient Departure - Patient accepted for admission by Dr. Cohen. - Discharge Plan Condition: Improved Disposition: ADMITTED TO [facility] - Billing Disposition and Condition Condition: STABLE Disposition: Admitted to [facility] - Attestation Statements Document Initiated by Shy: Yes Documenting Scribe: Christa Powell Provider For Whom Shy is Documenting (Include Credential): Dr. Santino Lawson MD Scribe Attestation: Christa Flores, scribed for Dr. Santino Lawson MD on 01/02/19 at 1843. Scribe Documentation Reviewed: Yes Provider Attestation: The documentation as recorded by the Christa rodriguez accurately reflects the service I personally performed and the decisions made by me, Dr. Santino Lawson MD Status of Scribe Document: Viewed
[2019-01-01 11:51] LABS: ABS Eosinophils 0.1 10^3/ul (0-0.6); ABS Lymphocytes 1.6 10^3/ul (1.0-4.8); ABS Monocytes 1.1 10^3/ul (0-0.8); ABS Neutrophils 8.6 10^3/ul (1.5-7.7); ALT 11 U/L (7-52); AST 15 U/L (13-39); Albumin/Globulin Ratio 1.6 (1-3); Alkaline Phosphatase 49 U/L (34-104); Anion Gap 6 mmol/L (2-11); BUN/Creatinine Ratio 19.1 (8-20); Blood Urea Nitrogen 18 mg/dL (6-24); C Reactive Protein 20.29 mg/L (<8.01); CO2 Carbon Dioxide 24 mmol/L (22-32); Calcium 8.1 mg/dL (8.6-10.3); Chloride 105 mmol/L (101-111); Creatine Kinase 33 U/L (10-223); EGFR African American 69.3 (>60); EGFR Non-African American 57.3 (>60); Eosinophil % 0.6 %; Globulin 1.9 g/dL (2-4); Glucose 117 mg/dL (70-100); Hematocrit 35 % (35-47); Hemoglobin 11.5 g/dL (12.0-16.0); Lymphocyte % 14.4 %; Magnesium 1.4 mg/dL (1.9-2.7); Mean Corpuscular HGB Conc 33 g/dL (31-36); Mean Corpuscular Hemoglobin 30 pg (27-31); Mean Corpuscular Volume 92 fL (80-97); Mean Platelet Volume 6.9 fL (7.4-10.4); Platelet Count 220 10^3/uL (150-450); Potassium 3.6 mmol/L (3.5-5.0); Red Cell Distribution Width 13 % (10-15); Sodium 135 mmol/L (135-145); Total Protein 4.9 g/dL (6.4-8.9); White Blood Count 11.5 10^3/uL (3.5-10.8)
[2019-01-01 12:04] LABS: Alcohol < 10 mg/dL (<10)
[2019-01-01] MEDS ORDERED: Iohexol 300* (CONTRAST) 10 ML SDV IV ONE (12:10)
[2019-01-01 12:20] LABS: TSH (Thyroid Stimulating Horm) 3.08 mcIU/mL (0.34-5.60)
[2019-01-01] MEDS ORDERED: Magnesium Sulfate 1 GM IV* 1 GM/100 ML BAG IV ONE (12:25)
[2019-01-01 14:08] LABS: Urine Appearance Clear; Urine Bilirubin Negative (Negative); Urine Blood Negative (Negative); Urine Color Straw; Urine Glucose Negative (Negative); Urine Ketones Trace (Negative); Urine Nitrite Negative (Negative); Urine Protein Negative (Negative); Urine Specific Gravity 1.014 (1.010-1.030); Urine Urobilinogen Negative (Negative)
[2019-01-01 14:33] LABS: Urine Benzodiazepine Screen None Detected (None Detect); Urine Opiates Screen None Detected (None Detect)
[2019-01-01] MEDS ORDERED: Bismuth Subsalicylate* 524 MG/30 ML BTL PO PRN (16:02)
[2019-01-01] MEDS ORDERED: Polyethylene Glycol 3350* 17 GM PACKET PO PRN (16:02)
[2019-01-01] MEDS ORDERED: diPHENhydraMINE PO* 25 MG PO PRN (16:22)
[2019-01-01] MEDS ORDERED: Magnesium Sulfate IV* 3 GM in NS 0.9% 100 ML* 100 ML IVPB ONE (16:23)
[2019-01-01] MEDS ORDERED: Metoprolol Tartrate IV* 1 MG/ML 5 ML VIAL IV PRN (16:41)
[2019-01-01] MEDS: Naproxen TAB* 250 MG PO PRN (16:50)
[2019-01-01] MEDS: NS 0.9% 1000 ML** 1,000 ML IV SCH (17:59)
[2019-01-01] MEDS: Metoprolol Tartrate TAB* 25 MG PO SCH (18:19)
[2019-01-01] MEDS ORDERED: Morphine INJ* 2 MG/ML 1 ML SYRINGE (TWO MG - NEW SYRINGE VERSION) IV PRN (18:37)
--- NOTE | 2019-01-01 19:57 | HP ---
HISTORY AND PHYSICAL: DATE OF ADMISSION: 01/01/19 ADMITTING PROVIDER: Michele Jimenes MD PRIMARY CARE PROVIDER: Dr. Ayesha Feldman. OUTPATIENT STORE DIRECTOR: Dr. Hobbs. OUTPATIENT DENTIST: Dr. Gila Hardy of [facility]. CHIEF COMPLAINT: Dizziness, presyncope, tooth pain. HISTORY OF PRESENT ILLNESS: Richa Solano is an 78-year-old female with PMH of paroxysmal atrial fibrillation(on subtherapeutic Eliquis dosing due to noncompliance); degenerative disk disease; spinal stenosis; chronic back and leg pains; longstanding smoker and hypertension on 4 meds. She has had pain in her left tooth for a 4 days and woke up with the swollen lip and was able to be squeezed into Dr. Gila Hardy's dentist office for an appointment. She skipped all of her antihypertensive medications in the morning as her blood pressure was only 84/55. She has frequent dizziness, but was feeling a little worse than normal. When she arrived to the dentist office, she felt weary and like she could hardly walk, was very diaphoretic and sweaty, very dizzy and had to be helped to the ground where she was lied down flat and EMS was called. Her blood pressures on the scene initially were 65/30. She was AFib. They established IV access and gave an IV fluid bolus. Repeat blood pressures was 55 /43 (I believe this was also before the bolus) and with heart rate 98. In [facility], she was in AFib with tachycardia low 100s, blood pressures improveto 110/69. She had a leukocytosis of 11.5, CRP of 20.2 and magnesium of 1.4. Blood sugars on the field have been 143 and repeat was 117. UA was negative for infection. She also had a CT maxillofacial which showed a periapical abscess of the left second maxillary incisor with premaxillary soft tissue phlegmon. No large drainable fluid collection was identified. She was started on 1 L normal saline bolus and ceftriaxone. She was referred to the hospitalist service for presyncope and met sepsis-2 criteria with tachycardia, leukocytosis and a source of infection. Chest x-ray showed no acute cardiopulmonary process. I called Dr. Gila Hardy and updated her on the findings. She was recommended to discharge on amoxicillin 500 mg t.i.d. upon discharge and followup in the office. There is no other dentist chief engineer production and Dr. Uriostegui has just established in the area and does not have privileges here. She also has a history of broken tooth fragment left behind after a last tooth extraction about a year ago, pointing to the left upper mouth. PAST MEDICAL HISTORY: Hypertension; paroxysmal atrial fibrillation, on anticoagulation, but per patient noncompliance, subtherapeutically dosed; peripheral vascular disease; depression; degenerative disk disease; spinal stenosis; chronic back and leg pains; constipation; osteoarthritis. PAST SURGICAL HISTORY: Includes hemorrhoidectomy, appendectomy, colonoscopy, cataract surgery, breast implant surgery, ovarian cyst removal during . MEDICATIONS: Include: 1. Docusate 200 mg p.o. at bedtime. 2. Pepto-Bismol 1 tab p.o. daily. 3. Cholecalciferol 1000 units p.o. daily. 4. Vitamin C 500 mg p.o. daily. 5. Spironolactone 25 mg p.o. daily. 6. Maalox 1 dose daily p.r.n. 7. Metoprolol tartrate 75 mg p.o. q.a.m., 100 mg p.o. q.p.m. 8. Irbesartan 300 mg p.o. daily. 9. Simethicone 180 mg p.o. daily. 10. Hydrochlorothiazide 25 g p.o. daily. 11. Eliquis 2.5 mg prescribed b.i.d., but she is only taking daily. 12. Benadryl 25 mg at bedtime p.r.n. 13. Anacin (aspirin/caffeine) 400/32 mg daily p.r.n. 14. Naproxen 220 to 440 p.o. b.i.d. p.r.n. ALLERGIES: ACETAMINOPHEN causes tachycardia. FAMILY HISTORY: Father had hypertension, colon cancer at age 80 and CAD at age 60. Mother had diabetes mellitus and essential hypertension. SOCIAL HISTORY: The patient is a current smoker since the age of 13, currently approximately one and a half packs per week with only 2 puffs per each cigarette. She used to be 1 pack per day smoker in earlier years. She only occasionally drinks small amounts of red wine. No drug use. 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 Medical surrogate is her daughter, Hayley Solano, who is in the room. She desires to be a DNR/DNI. REVIEW OF SYSTEMS: A complete 14-point review of systems is negative except as per HPI. She denies any nausea, vomiting, diarrhea, headaches, neck stiffness, rashes, cough, shortness of breath, burning with urination or increased frequency of urination. She does also attest to having some shooting pains behind her right ear for the last few weeks. PHYSICAL EXAMINATION GENERAL APPEARANCE: In no acute distress. VITAL SIGNS: Temperature 97.8; pulse rate currently 107, as high as 118; blood pressure 110/69, on the scene had been 65/30, currently 149/123. Orthostatic vital signs were checked; 135/72 lying with heart rate 94, sitting 107/80 with heart rate 111, standing 103/71 with heart rate 101. HEENT: Normocephalic, atraumatic. Pupils equal, round, and reactive to light. Extraocular motions are intact. The second maxillary incisor has a small phlegmon of pus anteriorly with some erythema around it. She is missing several teeth. LUNGS: Clear to auscultation bilaterally with no wheezing, rales, or rhonchi. CARDIOVASCULAR: Irregularly irregular, tachycardic with no murmurs, rubs, or gallops. ABDOMEN: Soft, nontender, nondistended. No rebound. No guarding. No Burden' s sign. EXTREMITIES: Warm, well perfused. No peripheral edema. NEUROLOGIC: Cranial nerves II through XII intact. Moving all extremities. Product Safety Professional strength intact. SKIN: No lesions or rashes. DIAGNOSTIC STUDIES/LAB DATA: White count 11.5, hemoglobin 11.5, hematocrit 35 , platelets 220, MCV 92. Sodium 135, potassium 3.6, chloride 105, BUN 18, creatinine 0.94, glucose 117, lactic acid 1.6, magnesium 1.4, calcium 8.1, CRP 20.29, BNP 286, albumin 3.0. UA; trace ketones, otherwise negative. Toxicology screen negative. Imaging: Chest x-ray, no acute cardiopulmonary process other than evidence of COPD. Maxillofacial CT with contrast, periapical abscess of left second maxillary incisor with premaxillary soft tissue phlegmon. No large drainable fluid collection is identified. Additional treated and untreated dental disease as above (specifically, there is a dental caries in the left mandibular canine and first premolar and the right maxillary canine and third molar impacted. EKG demonstrated AFib, normal axis, heart rate 93. No ST elevations or depressions. Normal intervals. QTc 482. ASSESSMENT AND PLAN: Richa Solano is an 78-year-old female with past medical history of paroxysmal atrial fibrillation; dental disease; hypertension; occasional chronic dizziness, presenting with presyncope and blood pressures as low as 65/30 and 55/43 in the field and evidence of a left second maxillary tooth abscess. She has been started on ceftriaxone and will continue that here and start flagyl for better anaerobic coverage. . As mentioned, I talked to her dentist, Gila Hardy, who is recommending amoxicillin 500 mg t.i.d. upon discharge. I am holding her Eliquis given the fact that she probably will need this tooth extracted and could have this done as early as 72 hours after her last dose, Tuesday, so potentially even Tuesday or I will get physical therapy to work with her. I suspect she probably had a vasovagal reaction in the setting of pain and possible atrial fibrillation with rapid ventricular response. She notably had skipped her beta-nathaniel in the morning given blood pressure of 84/55. I am going to continue metoprolol tartrate at 25 q.8 hours for now. Hold her irbesartan and Aldactone and hydrochlorothiazide. She was orthostatic got 1L NS and will continue normal saline 75 cc an hour for 1 more liter. For her pain, acute on chronic with dental abscess, she is requesting naproxen, I will give her 250 mg p.o. q.8 hours p.r.n. and I put her on some morphine IV for breakthrough pain. Continue her home bowel regimen. Depending on clinical course could consider an echocardiogram or CT of head. She desires to be DNR/DNI. She can eat a heart- healthy diet. Medical surrogate is her daughter, Hayley Solano [id number]/[facility] #: [id number] [facility]
[2019-01-01] MEDS ORDERED: Docusate CAP* 100 MG PO SCH (21:00)
[2019-01-01] MEDS: metroNIDAZOLE IV 500 MG/100ML* 500 MG/100 ML BAG IVPB SCH (21:32)
[2019-01-02] MEDS: Metoprolol Tartrate TAB* 25 MG PO SCH ×3 (00:48→17:01)
[2019-01-02] MEDS: Naproxen TAB* 250 MG PO PRN ×2 (02:38→09:17)
[2019-01-02] MEDS: metroNIDAZOLE IV 500 MG/100ML* 500 MG/100 ML BAG IVPB SCH ×2 (03:50→12:38)
[2019-01-02 07:59] LABS: ABS Eosinophils 0.2 10^3/ul (0-0.6); ABS Lymphocytes 2.5 10^3/ul (1.0-4.8); ABS Monocytes 0.7 10^3/ul (0-0.8); ABS Neutrophils 4.6 10^3/ul (1.5-7.7); Eosinophil % 1.9 %; Hematocrit 36 % (35-47); Hemoglobin 12.2 g/dL (12.0-16.0); Lymphocyte % 31.3 %; Mean Corpuscular HGB Conc 34 g/dL (31-36); Mean Corpuscular Hemoglobin 31 pg (27-31); Mean Corpuscular Volume 91 fL (80-97); Platelet Count 261 10^3/uL (150-450); Red Blood Count 3.95 10^6 /uL (3.70-4.87); Red Cell Distribution Width 14 % (10-15); White Blood Count 7.9 10^3/uL (3.5-10.8)
[2019-01-02 08:16] LABS: BUN/Creatinine Ratio 20.3 (8-20); Calcium 8.4 mg/dL (8.6-10.3); EGFR African American 118.7 (>60); EGFR Non-African American 98.1 (>60); Magnesium 2.1 mg/dL (1.9-2.7); Potassium 3.7 mmol/L (3.5-5.0)
[2019-01-02] MEDS ORDERED: Cholecalciferol TAB* 1000 UNITS PO SCH (09:00)
[2019-01-02] MEDS: NS 0.9% 1000 ML** 1,000 ML IV SCH (09:07)
[2019-01-02] MEDS ORDERED: cefTRIAXone(*) 1 GM in NS 0.9% 50 ML* 50 ML IVPB SCH (10:00)
[2019-01-02] MEDS ORDERED: Metoprolol Tartrate TAB* 50 mg PO ONE (15:28)
[2019-01-02 16:08] VITALS: BP 185/90
--- NOTE | 2019-01-03 00:06 | DS ---
CC: Dr. Ayesha Feldman; [facility] in [place], Dr. Gila Hardy, the phone number is [phone] [facility] in [place], [place]. * DISCHARGE SUMMARY: DATE OF ADMISSION: 01/01/19 DATE OF DISCHARGE: 01/02/19 PRIMARY CARE PROVIDER: Dr. Ayesha Feldman. DISPOSITION ON DISCHARGE: Home. CONDITION ON DISCHARGE: Stable. DISCHARGE DIAGNOSES: 1. Near syncope and hypotension likely due to a vagal episode. 2. Periapical abscess of the left second maxillary incisor. SECONDARY DIAGNOSES: 1. History of atrial fibrillation. Anticoagulation with Eliquis that the patient is supposed to hold prior to her oral surgery. 2. Hypertension. 3. Peripheral vascular disease. 4. Depression. 5. Spinal stenosis. 6. Chronic back pain. 7. Osteoarthritis. MEDICATIONS AT DISCHARGE: Include: 1. Vitamin C 500 mg daily. 2. Bismuth 262 mg daily. 3. Vitamin D3 1000 units daily. 4. Benadryl on a p.r.n. basis. 5. Colace 200 mg at bedtime. 6. Metoprolol tartrate 75 mg q.a.m. and 100 mg q.p.m. 7. Naproxen please hold prior to surgery. 8. MiraLAX 17 g daily p.r.n. 9. Simethicone 180 mg daily p.r.n. 10. Augmentin 875 mg b.i.d. 11. Eliquis 2.5 mg b.i.d. Please hold prior to surgery. 12. Aspirin with caffeine 400/32 mg 1 tablet p.r.n. headache. Please hold before surgery. 13. Hydrochlorothiazide 25 mg daily. Please hold until surgery. 14. Irbesartan 300 mg p.o. daily. Please hold until surgery. 15. Aldactone 300 mg daily. Please hold until surgery. The patient is scheduled with Dr. Hardy tomorrow, which is 01/03/19 at 11 a.m. for tooth extraction as above. The patient is also recommended to follow up with Dr. Ayesha Feldman within the next 1 to 3 days. PHYSICAL EXAMINATION: At the time of discharge, blood pressure of 154/84, heart rate of 111 and irregularly irregular, respiratory rate 16, O2 saturation 98% on room air, temperature 97.0. General: The patient is a pleasant 78-year- old female, who is in no acute distress. Alert, awake, and oriented x3. HEENT : Head: Atraumatic, normocephalic. Eyes: Pupils are equal, reactive to light and accommodation. Oropharynx is clear. Mucosa moist. Neck: Supple. No JVD. No bruits bilaterally. Cardiovascular: Regular rate and rhythm. No murmur. Respiratory: Clear to auscultation bilaterally. Abdomen: Soft, nontender. Bowel sounds are present in all 4 quadrants. Extremities: There is no edema. Pulses are +2 bilaterally. No clubbing or cyanosis. On neuro evaluation, speech is clear. Cranial nerves II through XII grossly intact. Motor strength is 5/5 bilaterally. Please note that on evaluation of the skin, there is no cellulitis noted, but the patient has some mildly swollen left mandibular area where originally the tooth abscess was located. LABORATORY DATA DURING THE HOSPITAL STAY: Includes on 01/02/19, white blood cell count of 7.9, hemoglobin 12.2, hematocrit of 36 and platelets of 261. Sodium was 140, potassium 3.7, chloride 108, carbon dioxide 27, BUN 12, creatinine 0.59. C- reactive protein at admission was 20. Maxillofacial CT obtained at admission, impression: "Periapical abscess of the left second maxillary incisor with epifanio-maxillary soft tissue fragment. No large drainable fluid collection was identified. Additional treated and untreated dental disease as above." HOSPITALIZATION COURSE: Richa Solano is an 78-year-old female who has had problems with her left lower incisor for approximately 4 days prior to arriving to Dr. Hardy's office from [facility] in [place]. At that point, when she sat on the bench waiting to be seen, she felt dizzy and she was noted to have blood pressures in the 50s. She was admitted to this hospital for overnight observation and treated with intravenous fluids and most of her antihypertensive medications were discontinued. Her anticoagulation with Eliquis was also held and her last dose was on 12/31/18 in the evening that is in preparation of the patient's surgery tomorrow. The patient is going to be placed on Augmentin twice a day and she is planning to see Dr. Uriostegui in the morning on 01/03/19 at 11 a.m. for surgery. The anticoagulation should be restarted as soon as possible after surgery but also depends on dentist's recommendation. Throughout the patient's hospital stay, the patient's blood pressures had resolved and her hypotension normalized pretty quickly after admission. Her systolic pressures are slightly elevated at discharge, but then she was only on partial dose of a beta nathaniel, which I am going to restart. I am holding her remaining medications until after surgery. The patient's aspirin as well as Eliquis and naproxen is also going to be held until after surgery. Please note that this is a short summary of the patient's hospitalization. Please refer to further medical records for details. TIME SPENT: Approximately 35 minutes was spent on the patient's discharge. [id number]/[facility] #: [id number] JULIA
== END 2019-01-02 18:15 | disposition home or self-care (01) ==
LOC: ED 11:00 → MEDTELE 15:58
PROVIDERS: ADMIT Internal Medicine; ATTEND Internal Medicine
DX: I95.9 Hypotension, unspecified (principal); K04.7 Periapical abscess without sinus; M27.2 Inflammatory conditions of jaws; I48.91 Unspecified atrial fibrillation; Z79.01 Long term (current) use of anticoagulants; I10 Essential (primary) hypertension; I73.9 Peripheral vascular disease, unspecified; F32.9 Major depressive disorder, single episode, unspecified; M48.00 Spinal stenosis, site unspecified; M54.9 Dorsalgia, unspecified; G89.29 Other chronic pain; M19.90 Unspecified osteoarthritis, unspecified site; Z79.899 Other long term (current) drug therapy; Z79.82 Long term (current) use of aspirin; R94.31 Abnormal electrocardiogram [ECG] [EKG]
CPT/HCPCS: 36415; 70487; 71045; 80048; 80053; 80307; 80320; 81003; 82550; 83605; 83735; 83880; 84443; 84484; 85025; 86140; 93005; 96361; 96365; 96366; 96367; 99285; A9270-GY; G0378; G0480; J0696; J3475; Q9967

== ENCOUNTER 2020-05-10 13:44 | Inpatient (IN) ==
[2020-05-10] MEDS ORDERED: NS 0.9% 1000 ml BAG 1,000 ML IV ONE ×3 (13:58→14:11)
[2020-05-10] MEDS ORDERED: Iodixanol (CONTRAST) 320 MG/ML 100 ML SDV IV ONE (14:09)
[2020-05-10 14:22] LABS: ABS Lymphocytes 1.4 10^3/ul (1.0-4.8); ABS Monocytes 0.7 10^3/ul (0-0.8); ABS Neutrophils 12.8 10^3/ul (1.5-7.7); Eosinophil % 0.1 %; Hematocrit 47 % (35-47); Hemoglobin 15.7 g/dL (12.0-16.0); Lymphocyte % 9.6 %; Mean Corpuscular HGB Conc 34 g/dL (31-36); Mean Corpuscular Hemoglobin 30 pg (27-31); Mean Corpuscular Volume 90 fL (80-97); Mean Platelet Volume 7.3 fL (7.4-10.4); Platelet Count 330 10^3/uL (150-450); Red Blood Count 5.16 10^6 /uL (3.70-4.87); Red Cell Distribution Width 13 % (10-15); White Blood Count 14.9 10^3/uL (3.5-10.8)
[2020-05-10 14:32] LABS: Activated Partial Thrombo Time 31.4 seconds (26.0-38.0); INR 1.12 (0.82-1.09)
[2020-05-10 14:39] LABS: Troponin I 0.01 ng/mL (<0.03)
[2020-05-10 14:41] LABS: Albumin 4.4 g/dL (3.2-5.2); Albumin/Globulin Ratio 1.3 (1-3); BUN/Creatinine Ratio 24.2 (8-20); Globulin 3.3 g/dL (2-4); HDL Cholesterol 61.5 mg/dL; Potassium 3.5 mmol/L (3.5-5.0); Total Bilirubin 0.6 mg/dL (0.2-1.0); Total Protein 7.7 g/dL (6.4-8.9)
[2020-05-10] MEDS ORDERED: Metoprolol Tartrate 5 mg VIAL 5 ml VIAL (1 mg/ml) IV ONE (15:14)
[2020-05-10 15:28] LABS: Magnesium 1.6 mg/dL (1.9-2.7)
[2020-05-10] MEDS: KCL 20 MEQ/100 ML IVPREMIX 20 MEQ/100 ML BAG IV SCH ×2 (15:36→21:29)
[2020-05-10] MEDS ORDERED: Magnesium Sulfate 2 gm BAG 2 GM/50 ML BAG IVPB ONE (15:55)
[2020-05-10 16:35] LABS: Urine Appearance Clear; Urine Bilirubin Negative (Negative); Urine Blood Negative (Negative); Urine Color Yellow; Urine Glucose Negative (Negative); Urine Ketones Trace (Negative); Urine Nitrite Negative (Negative); Urine Protein 1+(30 mg/dL) (Negative); Urine Specific Gravity 1.021 (1.010-1.030); Urine Urobilinogen Negative (Negative)
[2020-05-10 17:17] LABS: Urine Bacteria Absent (Absent); Urine Red Blood Cell 2+(6-10/hpf) (Absent); Urine White Blood Cell Trace(0-5/hpf) (Absent)
[2020-05-10] MEDS ORDERED: ASPIRIN CAFFEINE PO PRN (18:14)
[2020-05-10] MEDS ORDERED: Polyethylene Glycol 3350 17 GM PACKET PO PRN (18:14)
[2020-05-10] MEDS ORDERED: diPHENhydraMINE 25 mg TAB PO PRN (18:14)
[2020-05-10] MEDS ORDERED: Metoprolol Tartrate 5 mg VIAL 5 ml VIAL (1 mg/ml) IV PRN (18:17)
[2020-05-10] MEDS: Metoprolol Tartrate 5 mg VIAL 5 ml VIAL (1 mg/ml) IV SCH (21:30)
[2020-05-11] MEDS: Metoprolol Tartrate 5 mg VIAL 5 ml VIAL (1 mg/ml) IV PRN ×3 (01:42→19:41)
[2020-05-11] MEDS: Metoprolol Tartrate 5 mg VIAL 5 ml VIAL (1 mg/ml) IV SCH ×4 (03:18→21:27)
[2020-05-11 05:42] LABS: ABS Lymphocytes 1.5 10^3/ul (1.0-4.8); ABS Monocytes 0.8 10^3/ul (0-0.8); ABS Neutrophils 9.3 10^3/ul (1.5-7.7); Eosinophil % 0.1 %; Hematocrit 42 % (35-47); Hemoglobin 14.5 g/dL (12.0-16.0); Lymphocyte % 12.5 %; Mean Corpuscular HGB Conc 35 g/dL (31-36); Mean Corpuscular Hemoglobin 31 pg (27-31); Mean Corpuscular Volume 89 fL (80-97); Mean Platelet Volume 7.5 fL (7.4-10.4); Platelet Count 306 10^3/uL (150-450); Red Blood Count 4.69 10^6 /uL (3.70-4.87); Red Cell Distribution Width 13 % (10-15); White Blood Count 11.6 10^3/uL (3.5-10.8)
[2020-05-11 05:57] LABS: BUN/Creatinine Ratio 26.2 (8-20); EGFR African American 113.9 (>60); EGFR Non-African American 94.1 (>60); Potassium 3.9 mmol/L (3.5-5.0)
[2020-05-11] MEDS ORDERED: Digoxin IV 0.5 MG/2 ML AMP (0.25 MG/ML) IV SLOW PU ONE (17:44)
[2020-05-12] MEDS ORDERED: Digoxin IV 0.5 MG/2 ML AMP (0.25 MG/ML) IV SLOW PU ONE (00:48)
[2020-05-12] MEDS: Metoprolol Tartrate 5 mg VIAL 5 ml VIAL (1 mg/ml) IV SCH ×4 (04:18→21:47)
[2020-05-12 06:25] LABS: ABS Lymphocytes 1.8 10^3/ul (1.0-4.8); ABS Neutrophils 9.8 10^3/ul (1.5-7.7); Eosinophil % 0.1 %; Hematocrit 45 % (35-47); Hemoglobin 14.7 g/dL (12.0-16.0); Lymphocyte % 14.3 %; Mean Corpuscular HGB Conc 33 g/dL (31-36); Mean Corpuscular Hemoglobin 30 pg (27-31); Mean Corpuscular Volume 91 fL (80-97); Mean Platelet Volume 7.4 fL (7.4-10.4); Platelet Count 299 10^3/uL (150-450); Red Blood Count 4.91 10^6 /uL (3.70-4.87); Red Cell Distribution Width 13 % (10-15); White Blood Count 12.7 10^3/uL (3.5-10.8)
[2020-05-12] MEDS ORDERED: Metoprolol Tartrate 5 mg VIAL 5 ml VIAL (1 mg/ml) IV PRN (10:50)
[2020-05-12 13:58] LABS: TSH Ultra Thyroid Stim Horm 2.63 mcIU/mL (0.34-5.60)
[2020-05-12] MEDS ORDERED: Metoprolol Tartrate 5 mg VIAL 5 ml VIAL (1 mg/ml) IV SCH (15:00)
[2020-05-12] MEDS: NS 0.9% 1000 ml BAG 1,000 ML IV SCH (15:48)
[2020-05-12] MEDS ORDERED: Digoxin IV 0.5 MG/2 ML AMP (0.25 MG/ML) IV SLOW PU SCH (17:00)
[2020-05-13] MEDS: Metoprolol Tartrate 5 mg VIAL 5 ml VIAL (1 mg/ml) IV SCH ×3 (02:44→10:07)
[2020-05-13] MEDS: NS 0.9% 1000 ml BAG 1,000 ML IV SCH ×2 (05:40→19:19)
[2020-05-13 06:49] LABS: ABS Lymphocytes 1.6 10^3/ul (1.0-4.8); ABS Monocytes 1.1 10^3/ul (0-0.8); ABS Neutrophils 10.2 10^3/ul (1.5-7.7); Eosinophil % 0.1 %; Hematocrit 43 % (35-47); Hemoglobin 14.3 g/dL (12.0-16.0); Lymphocyte % 12.3 %; Mean Corpuscular HGB Conc 34 g/dL (31-36); Mean Corpuscular Hemoglobin 30 pg (27-31); Mean Corpuscular Volume 90 fL (80-97); Mean Platelet Volume 7.7 fL (7.4-10.4); Platelet Count 281 10^3/uL (150-450); Red Blood Count 4.71 10^6 /uL (3.70-4.87); Red Cell Distribution Width 13 % (10-15)
[2020-05-13] MEDS: hydrALAZINE 20 mg/ml 1 ML Vial IV IV SLOW PU PRN ×2 (11:53→16:29)
[2020-05-13] MEDS ORDERED: Metoprolol Tartrate 5 mg VIAL 5 ml VIAL (1 mg/ml) IV PRN (13:11)
[2020-05-14] MEDS: NS 0.9% 1000 ml BAG 1,000 ML IV SCH (10:45)
[2020-05-15] MEDS: NS 0.9% 1000 ml BAG 1,000 ML IV SCH (00:41)
[2020-05-15 07:44] LABS: ABS Eosinophils 0.1 10^3/ul (0-0.6); ABS Lymphocytes 1.9 10^3/ul (1.0-4.8); ABS Monocytes 1.1 10^3/ul (0-0.8); ABS Neutrophils 8.3 10^3/ul (1.5-7.7); Eosinophil % 1.1 %; Hematocrit 43 % (35-47); Hemoglobin 14.5 g/dL (12.0-16.0); Lymphocyte % 16.5 %; Mean Corpuscular HGB Conc 34 g/dL (31-36); Mean Corpuscular Hemoglobin 31 pg (27-31); Mean Corpuscular Volume 90 fL (80-97); Platelet Count 301 10^3/uL (150-450); Red Blood Count 4.71 10^6 /uL (3.70-4.87); Red Cell Distribution Width 13 % (10-15); White Blood Count 11.4 10^3/uL (3.5-10.8)
[2020-05-15 07:57] LABS: Calcium 8.8 mg/dL (8.6-10.3); EGFR African American 143.3 (>60); EGFR Non-African American 118.4 (>60); Potassium 3.1 mmol/L (3.5-5.0)
[2020-05-15] MEDS ORDERED: Potassium Chlor 20 meq TAB.ER PO ONE (07:58)
[2020-05-15 08:25] LABS: Magnesium 1.6 mg/dL (1.9-2.7)
[2020-05-15] MEDS ORDERED: Magnesium Sulfate IV 1GM/100ML 1 GM/100 ML BAG IV ONE (10:55)
[2020-05-16 06:26] LABS: BUN/Creatinine Ratio 34.5 (8-20); Calcium 9.3 mg/dL (8.6-10.3); EGFR African American 128.4 (>60); EGFR Non-African American 106.1 (>60); Magnesium 1.8 mg/dL (1.9-2.7); Potassium 3.3 mmol/L (3.5-5.0)
[2020-05-16] MEDS ORDERED: Magnesium Sulfate IV 1GM/100ML 1 GM/100 ML BAG IV ONE (08:21)
[2020-05-16] MEDS ORDERED: Potassium Chlor 20 meq TAB.ER PO ONE (08:21)
[2020-05-17 05:56] LABS: BUN/Creatinine Ratio 36.2 (8-20); Calcium 9.2 mg/dL (8.6-10.3); EGFR African American 120.7 (>60); EGFR Non-African American 99.8 (>60); Magnesium 1.8 mg/dL (1.9-2.7); Potassium 3.9 mmol/L (3.5-5.0)
[2020-05-18 08:03] VITALS: BP 134/75
== END 2020-05-18 14:30 | DRG 65 ==
LOC: ED 13:44 → MEDTELE 16:04
PROVIDERS: ADMIT Internal Medicine; ATTEND Internal Medicine

== ENCOUNTER 2020-05-18 14:35 | Inpatient (IN) ==
[2020-05-18] MEDS ORDERED: Senna TAB 8.6 mg TAB PO PRN (15:31)
[2020-05-18] MEDS: Senna TAB 8.6 mg TAB PO SCH (20:12)
[2020-05-19 08:15] LABS: ABS Eosinophils 0.4 10^3/ul (0-0.6); ABS Neutrophils 9.2 10^3/ul (1.5-7.7); Eosinophil % 2.9 %; Hematocrit 42 % (35-47); Lymphocyte % 15.8 %; Mean Corpuscular HGB Conc 34 g/dL (31-36); Mean Corpuscular Hemoglobin 30 pg (27-31); Mean Corpuscular Volume 90 fL (80-97); Mean Platelet Volume 8.2 fL (7.4-10.4); Platelet Count 373 10^3/uL (150-450); Red Blood Count 4.59 10^6 /uL (3.70-4.87); Red Cell Distribution Width 13 % (10-15); White Blood Count 12.7 10^3/uL (3.5-10.8)
[2020-05-19 08:19] LABS: Albumin 3.2 g/dL (3.2-5.2); Albumin/Globulin Ratio 1.1 (1-3); BUN/Creatinine Ratio 35.9 (8-20); Calcium 9.2 mg/dL (8.6-10.3); EGFR African American 107.8 (>60); EGFR Non-African American 89.1 (>60); Total Bilirubin 0.6 mg/dL (0.2-1.0); Total Protein 6.2 g/dL (6.4-8.9)
[2020-05-19] MEDS: Aspirin EC 325 mg TAB.EC PO SCH ×2 (09:29→10:37)
[2020-05-19] MEDS: Potassium Chloride LIQUID 20 MEQ/15 ML LIQUID PO SCH (21:49)
[2020-05-19] MEDS: Heparin 5000 UNITS/ML 1 mL VIAL SUBCUT SCH (21:50)
[2020-05-19] MEDS: Senna TAB 8.6 mg TAB PO SCH (22:18)
[2020-05-20] MEDS: Heparin 5000 UNITS/ML 1 mL VIAL SUBCUT SCH ×2 (11:02→22:03)
[2020-05-20] MEDS: Potassium Chloride LIQUID 20 MEQ/15 ML LIQUID PO SCH ×2 (11:05→22:07)
[2020-05-20 18:07] LABS: Urine Appearance Cloudy; Urine Bilirubin Negative (Negative); Urine Blood 2+ (Negative); Urine Color Yellow; Urine Glucose Negative (Negative); Urine Ketones 1+ (Negative); Urine Nitrite Negative (Negative); Urine Protein 1+(30 mg/dL) (Negative); Urine Urobilinogen Negative (Negative)
[2020-05-20 18:18] LABS: Urine Bacteria Absent (Absent); Urine Red Blood Cell 3+(>10/hpf) (Absent); Urine White Blood Cell 3+(>20/hpf) (Absent)
[2020-05-20] MEDS ORDERED: D5NS 0.9% 1000 ml BAG 1,000 ML IV SCH (20:00)
[2020-05-20] MEDS: Senna TAB 8.6 mg TAB PO SCH (22:10)
[2020-05-21] MEDS: D5W NS IVFLUID 1000 ML IV SCH ×2 (00:28→15:29)
[2020-05-21] MEDS: Potassium Chloride LIQUID 20 MEQ/15 ML LIQUID PO SCH ×2 (08:55→20:15)
[2020-05-21] MEDS: Heparin 5000 UNITS/ML 1 mL VIAL SUBCUT SCH (08:55)
[2020-05-21] MEDS: Senna TAB 8.6 mg TAB PO SCH (20:15)
[2020-05-21] MEDS ORDERED: Iohexol 300 (CONTRAST) 10 ML SDV IV ONE (20:16)
[2020-05-22 06:05] LABS: ABS Basophils 0.1 10^3/ul (0-0.2); ABS Eosinophils 0.2 10^3/ul (0-0.6); ABS Lymphocytes 2.2 10^3/ul (1.0-4.8); ABS Monocytes 0.9 10^3/ul (0-0.8); ABS Neutrophils 9.2 10^3/ul (1.5-7.7); Eosinophil % 1.9 %; Hematocrit 41 % (35-47); Hemoglobin 13.6 g/dL (12.0-16.0); Lymphocyte % 17.7 %; Mean Corpuscular HGB Conc 33 g/dL (31-36); Mean Corpuscular Hemoglobin 30 pg (27-31); Mean Corpuscular Volume 91 fL (80-97); Mean Platelet Volume 7.5 fL (7.4-10.4); Nucleated Red Blood Cells % 0.1; Platelet Count 390 10^3/uL (150-450); Red Blood Count 4.47 10^6 /uL (3.70-4.87); Red Cell Distribution Width 13 % (10-15); White Blood Count 12.7 10^3/uL (3.5-10.8)
[2020-05-22 06:21] LABS: BUN/Creatinine Ratio 22.8 (8-20); Calcium 9.2 mg/dL (8.6-10.3); EGFR African American 123.2 (>60); EGFR Non-African American 101.8 (>60); Potassium 3.7 mmol/L (3.5-5.0)
[2020-05-22] MEDS: Potassium Chloride LIQUID 20 MEQ/15 ML LIQUID PO SCH ×2 (09:34→20:25)
[2020-05-22] MEDS: Docusate LIQ 100 MG/10 ML UDC PO SCH ×2 (09:34→20:25)
[2020-05-22] MEDS: Senna TAB 8.6 mg TAB PO SCH (20:24)
[2020-05-23] MEDS: Nicotine PATCH 14 MG/24 HR PATCH TRANSDERM SCH (10:40)
[2020-05-23] MEDS: Docusate LIQ 100 MG/10 ML UDC PO SCH ×2 (10:40→21:11)
[2020-05-23] MEDS: Potassium Chloride LIQUID 20 MEQ/15 ML LIQUID PO SCH (10:40)
[2020-05-23] MEDS: Senna TAB 8.6 mg TAB PO SCH (21:08)
[2020-05-24] MEDS: Potassium Chloride LIQUID 20 MEQ/15 ML LIQUID PO SCH (08:45)
[2020-05-24] MEDS: Docusate LIQ 100 MG/10 ML UDC PO SCH ×2 (08:45→22:17)
[2020-05-24] MEDS: Nicotine PATCH 14 MG/24 HR PATCH TRANSDERM SCH (08:46)
[2020-05-24] MEDS: Senna TAB 8.6 mg TAB PO SCH (22:18)
[2020-05-25] MEDS: Docusate LIQ 100 MG/10 ML UDC PO SCH ×2 (09:32→21:02)
[2020-05-25] MEDS: Potassium Chloride LIQUID 20 MEQ/15 ML LIQUID PO SCH (09:32)
[2020-05-25] MEDS: Nicotine PATCH 14 MG/24 HR PATCH TRANSDERM SCH (09:33)
[2020-05-25 20:34] LABS: Urine Appearance Cloudy; Urine Bilirubin Negative (Negative); Urine Blood 3+ (Negative); Urine Color Yellow; Urine Glucose Negative (Negative); Urine Ketones Negative (Negative); Urine Nitrite Negative (Negative); Urine Protein 1+(30 mg/dL) (Negative); Urine Specific Gravity 1.018 (1.010-1.030); Urine Urobilinogen Negative (Negative)
[2020-05-25 20:47] LABS: Urine Bacteria Absent (Absent); Urine Red Blood Cell 3+(>10/hpf) (Absent); Urine White Blood Cell 3+(>20/hpf) (Absent)
[2020-05-25] MEDS: Senna TAB 8.6 mg TAB PO SCH (20:59)
[2020-05-26 06:42] LABS: ABS Basophils 0.1 10^3/ul (0-0.2); ABS Eosinophils 0.3 10^3/ul (0-0.6); ABS Lymphocytes 2.4 10^3/ul (1.0-4.8); ABS Monocytes 0.7 10^3/ul (0-0.8); ABS Neutrophils 7.2 10^3/ul (1.5-7.7); Eosinophil % 3.3 %; Hematocrit 42 % (35-47); Lymphocyte % 22.1 %; Mean Corpuscular HGB Conc 34 g/dL (31-36); Mean Corpuscular Hemoglobin 31 pg (27-31); Mean Corpuscular Volume 91 fL (80-97); Mean Platelet Volume 7.2 fL (7.4-10.4); Platelet Count 460 10^3/uL (150-450); Red Blood Count 4.57 10^6 /uL (3.70-4.87); Red Cell Distribution Width 14 % (10-15); White Blood Count 10.7 10^3/uL (3.5-10.8)
[2020-05-26 06:58] LABS: Albumin 3.4 g/dL (3.2-5.2); Albumin/Globulin Ratio 1.2 (1-3); BUN/Creatinine Ratio 26.8 (8-20); Calcium 9.5 mg/dL (8.6-10.3); EGFR Non-African American 66.9 (>60); Globulin 2.9 g/dL (2-4); Potassium 4.4 mmol/L (3.5-5.0); Total Bilirubin 0.5 mg/dL (0.2-1.0); Total Protein 6.3 g/dL (6.4-8.9)
[2020-05-26] MEDS: Docusate LIQ 100 MG/10 ML UDC PO SCH ×2 (09:16→22:23)
[2020-05-26] MEDS: Potassium Chloride LIQUID 20 MEQ/15 ML LIQUID PO SCH (09:18)
[2020-05-26] MEDS: Nicotine PATCH 14 MG/24 HR PATCH TRANSDERM SCH (09:25)
[2020-05-26] MEDS: Amoxicillin SUSP ORALSYR 80 MG/ML (400 mg/5 ml) PO SCH ×2 (15:59→22:24)
[2020-05-26] MEDS: Senna TAB 8.6 mg TAB PO SCH (22:24)
[2020-05-27] MEDS: Amoxicillin SUSP ORALSYR 80 MG/ML (400 mg/5 ml) PO SCH ×3 (10:57→21:39)
[2020-05-27] MEDS: Docusate LIQ 100 MG/10 ML UDC PO SCH ×2 (10:58→21:39)
[2020-05-27] MEDS: Nicotine PATCH 14 MG/24 HR PATCH TRANSDERM SCH (10:59)
[2020-05-27] MEDS: Senna TAB 8.6 mg TAB PO SCH (21:39)
[2020-05-28] MEDS: Docusate LIQ 100 MG/10 ML UDC PO SCH ×2 (11:03→21:14)
[2020-05-28] MEDS: Amoxicillin SUSP ORALSYR 80 MG/ML (400 mg/5 ml) PO SCH ×3 (11:03→21:11)
[2020-05-28] MEDS: Nicotine PATCH 14 MG/24 HR PATCH TRANSDERM SCH (11:04)
[2020-05-28] MEDS: Senna TAB 8.6 mg TAB PO SCH (21:17)
[2020-05-29] MEDS: Amoxicillin SUSP ORALSYR 80 MG/ML (400 mg/5 ml) PO SCH ×3 (08:56→21:17)
[2020-05-29] MEDS: Nicotine PATCH 14 MG/24 HR PATCH TRANSDERM SCH (08:56)
[2020-05-29] MEDS: Docusate LIQ 100 MG/10 ML UDC PO SCH ×2 (08:56→20:29)
[2020-05-29] MEDS: Ibuprofen PED LIQ 100 MG/5 ML UDC PO PRN (14:23)
[2020-05-29] MEDS: Senna TAB 8.6 mg TAB PO SCH (20:29)
[2020-05-30] MEDS: Ibuprofen PED LIQ 100 MG/5 ML UDC PO PRN (05:53)
[2020-05-30] MEDS: Nicotine PATCH 14 MG/24 HR PATCH TRANSDERM SCH (10:31)
[2020-05-30] MEDS: Amoxicillin SUSP ORALSYR 80 MG/ML (400 mg/5 ml) PO SCH ×3 (10:32→20:10)
[2020-05-30] MEDS: Docusate LIQ 100 MG/10 ML UDC PO SCH ×2 (10:33→20:10)
[2020-05-30] MEDS: Senna TAB 8.6 mg TAB PO SCH (20:11)
[2020-05-31] MEDS: Ibuprofen PED LIQ 100 MG/5 ML UDC PO PRN ×2 (01:45→21:31)
[2020-05-31] MEDS: Nicotine PATCH 14 MG/24 HR PATCH TRANSDERM SCH (08:29)
[2020-05-31] MEDS: Docusate LIQ 100 MG/10 ML UDC PO SCH ×2 (08:30→21:30)
[2020-05-31] MEDS: Amoxicillin SUSP ORALSYR 80 MG/ML (400 mg/5 ml) PO SCH ×3 (08:31→21:33)
[2020-05-31] MEDS: Senna TAB 8.6 mg TAB PO SCH (21:24)
[2020-06-01] MEDS: Docusate LIQ 100 MG/10 ML UDC PO SCH ×2 (08:42→19:37)
[2020-06-01] MEDS: Nicotine PATCH 14 MG/24 HR PATCH TRANSDERM SCH (08:42)
[2020-06-01] MEDS: Senna TAB 8.6 mg TAB PO SCH (19:36)
[2020-06-02] MEDS: Docusate LIQ 100 MG/10 ML UDC PO SCH ×2 (07:35→20:12)
[2020-06-02] MEDS: Nicotine PATCH 14 MG/24 HR PATCH TRANSDERM SCH (07:35)
[2020-06-02 07:43] LABS: ABS Eosinophils 0.2 10^3/ul (0-0.6); ABS Monocytes 0.8 10^3/ul (0-0.8); ABS Neutrophils 9.3 10^3/ul (1.5-7.7); Eosinophil % 1.7 %; Hematocrit 42 % (35-47); Hemoglobin 14.1 g/dL (12.0-16.0); Lymphocyte % 16.2 %; Mean Corpuscular HGB Conc 34 g/dL (31-36); Mean Corpuscular Hemoglobin 30 pg (27-31); Mean Corpuscular Volume 90 fL (80-97); Mean Platelet Volume 7.7 fL (7.4-10.4); Platelet Count 413 10^3/uL (150-450); Red Blood Count 4.65 10^6 /uL (3.70-4.87); Red Cell Distribution Width 13 % (10-15); White Blood Count 12.3 10^3/uL (3.5-10.8)
[2020-06-02 08:00] LABS: Albumin 3.5 g/dL (3.2-5.2); Albumin/Globulin Ratio 1.2 (1-3); BUN/Creatinine Ratio 32.4 (8-20); EGFR African American 100.5 (>60); Total Bilirubin 0.6 mg/dL (0.2-1.0); Total Protein 6.5 g/dL (6.4-8.9)
[2020-06-02] MEDS ORDERED: Potassium Chloride LIQUID 20 MEQ/15 ML LIQUID PO ONE (09:45)
[2020-06-02 10:46] LABS: Potassium 2.6 mmol/L (3.5-5.0)
[2020-06-02] MEDS: D5W NS 0.9% 40Meq KCL 1000 ml 1,000 ML IV SCH ×2 (12:15→23:05)
[2020-06-02] MEDS: Potassium Chloride LIQUID 20 MEQ/15 ML LIQUID PO SCH ×2 (14:52→20:14)
[2020-06-02] MEDS: Ibuprofen PED LIQ 100 MG/5 ML UDC PO PRN (18:12)
[2020-06-02] MEDS: Senna TAB 8.6 mg TAB PO SCH (20:11)
[2020-06-03 06:40] LABS: BUN/Creatinine Ratio 30.6 (8-20); Calcium 9.4 mg/dL (8.6-10.3); EGFR African American 111.8 (>60); EGFR Non-African American 92.4 (>60)
[2020-06-03 07:40] LABS: Potassium 3.7 mmol/L (3.5-5.0)
[2020-06-03] MEDS: D5W NS 0.9% 40Meq KCL 1000 ml 1,000 ML IV SCH (11:22)
[2020-06-03] MEDS: Nicotine PATCH 14 MG/24 HR PATCH TRANSDERM SCH (11:26)
[2020-06-03] MEDS: Docusate LIQ 100 MG/10 ML UDC PO SCH ×3 (12:20→21:22)
[2020-06-03] MEDS: Potassium Chloride LIQUID 20 MEQ/15 ML LIQUID PO SCH ×2 (12:21→21:18)
[2020-06-03] MEDS: Ibuprofen PED LIQ 100 MG/5 ML UDC PO PRN (12:24)
[2020-06-03] MEDS: Senna TAB 8.6 mg TAB PO SCH (21:18)
[2020-06-04] MEDS: Potassium Chloride LIQUID 20 MEQ/15 ML LIQUID PO SCH ×2 (08:06→21:28)
[2020-06-04] MEDS: Nicotine PATCH 14 MG/24 HR PATCH TRANSDERM SCH (08:07)
[2020-06-04] MEDS: Docusate LIQ 100 MG/10 ML UDC PO SCH ×2 (08:07→21:11)
[2020-06-04] MEDS: Ibuprofen PED LIQ 100 MG/5 ML UDC PO PRN (18:55)
[2020-06-04] MEDS: Senna TAB 8.6 mg TAB PO SCH (21:14)
[2020-06-05] MEDS: Ibuprofen PED LIQ 100 MG/5 ML UDC PO PRN ×2 (02:15→11:33)
[2020-06-05] MEDS: Potassium Chloride LIQUID 20 MEQ/15 ML LIQUID PO SCH ×2 (10:03→21:31)
[2020-06-05] MEDS: Docusate LIQ 100 MG/10 ML UDC PO SCH ×2 (10:08→21:30)
[2020-06-05] MEDS: Nicotine PATCH 14 MG/24 HR PATCH TRANSDERM SCH (10:10)
[2020-06-05] MEDS: Senna TAB 8.6 mg TAB PO SCH (21:31)
[2020-06-06 06:52] LABS: BUN/Creatinine Ratio 17.7 (8-20); Calcium 9.2 mg/dL (8.6-10.3); EGFR African American 111.8 (>60); EGFR Non-African American 92.4 (>60); Potassium 3.7 mmol/L (3.5-5.0)
[2020-06-06] MEDS: Potassium Chloride LIQUID 20 MEQ/15 ML LIQUID PO SCH ×2 (08:47→21:34)
[2020-06-06] MEDS: Docusate LIQ 100 MG/10 ML UDC PO SCH ×2 (08:47→21:34)
[2020-06-06] MEDS: Nicotine PATCH 14 MG/24 HR PATCH TRANSDERM SCH ×2 (08:50→08:56)
[2020-06-06] MEDS: Ibuprofen PED LIQ 100 MG/5 ML UDC PO PRN (13:27)
[2020-06-06] MEDS: Senna TAB 8.6 mg TAB PO SCH (21:34)
[2020-06-07] MEDS: Nicotine PATCH 14 MG/24 HR PATCH TRANSDERM SCH (08:42)
[2020-06-07] MEDS: Docusate LIQ 100 MG/10 ML UDC PO SCH ×2 (08:43→21:11)
[2020-06-07] MEDS: Potassium Chloride LIQUID 20 MEQ/15 ML LIQUID PO SCH ×2 (08:49→21:11)
[2020-06-07] MEDS: Ibuprofen PED LIQ 100 MG/5 ML UDC PO PRN (17:41)
[2020-06-07] MEDS: Senna TAB 8.6 mg TAB PO SCH (21:06)
[2020-06-08] MEDS: Potassium Chloride LIQUID 20 MEQ/15 ML LIQUID PO SCH ×2 (08:14→22:01)
[2020-06-08] MEDS: Nicotine PATCH 14 MG/24 HR PATCH TRANSDERM SCH (08:18)
[2020-06-08] MEDS: Docusate LIQ 100 MG/10 ML UDC PO SCH ×2 (08:18→22:00)
[2020-06-08] MEDS: Senna TAB 8.6 mg TAB PO SCH (22:03)
[2020-06-09 05:22] LABS: ABS Basophils 0.1 10^3/ul (0-0.2); ABS Eosinophils 0.5 10^3/ul (0-0.6); ABS Lymphocytes 2.1 10^3/ul (1.0-4.8); ABS Monocytes 0.6 10^3/ul (0-0.8); ABS Neutrophils 6.4 10^3/ul (1.5-7.7); Eosinophil % 4.8 %; Hematocrit 40 % (35-47); Hemoglobin 13.3 g/dL (12.0-16.0); Lymphocyte % 21.7 %; Mean Corpuscular HGB Conc 34 g/dL (31-36); Mean Corpuscular Hemoglobin 30 pg (27-31); Mean Corpuscular Volume 90 fL (80-97); Mean Platelet Volume 7.4 fL (7.4-10.4); Nucleated Red Blood Cells % 0.1; Platelet Count 305 10^3/uL (150-450); Red Blood Count 4.39 10^6 /uL (3.70-4.87); Red Cell Distribution Width 14 % (10-15); White Blood Count 9.6 10^3/uL (3.5-10.8)
[2020-06-09 05:52] LABS: Albumin 3.2 g/dL (3.2-5.2); Albumin/Globulin Ratio 1.2 (1-3); BUN/Creatinine Ratio 23.9 (8-20); Calcium 9.4 mg/dL (8.6-10.3); EGFR African American 102.2 (>60); EGFR Non-African American 84.5 (>60); Globulin 2.7 g/dL (2-4); Potassium 3.6 mmol/L (3.5-5.0); Total Bilirubin 0.5 mg/dL (0.2-1.0); Total Protein 5.9 g/dL (6.4-8.9)
[2020-06-09] MEDS: Potassium Chloride LIQUID 20 MEQ/15 ML LIQUID PO SCH ×2 (09:33→19:57)
[2020-06-09] MEDS: Nicotine PATCH 14 MG/24 HR PATCH TRANSDERM SCH (09:33)
[2020-06-09] MEDS: Docusate LIQ 100 MG/10 ML UDC PO SCH ×2 (09:34→20:00)
[2020-06-09] MEDS: Senna TAB 8.6 mg TAB PO SCH (20:03)
[2020-06-10] MEDS: Potassium Chloride LIQUID 20 MEQ/15 ML LIQUID PO SCH ×2 (09:29→19:21)
[2020-06-10] MEDS: Nicotine PATCH 14 MG/24 HR PATCH TRANSDERM SCH (09:29)
[2020-06-10] MEDS: Docusate LIQ 100 MG/10 ML UDC PO SCH ×2 (09:31→19:27)
[2020-06-10] MEDS: Senna TAB 8.6 mg TAB PO SCH (19:27)
[2020-06-10] MEDS: Ibuprofen PED LIQ 100 MG/5 ML UDC PO PRN (21:03)
[2020-06-11] MEDS: Potassium Chloride LIQUID 20 MEQ/15 ML LIQUID PO SCH ×2 (08:46→20:36)
[2020-06-11] MEDS: Docusate LIQ 100 MG/10 ML UDC PO SCH ×2 (08:50→20:36)
[2020-06-11] MEDS: Nicotine PATCH 14 MG/24 HR PATCH TRANSDERM SCH (09:36)
[2020-06-11] MEDS: Senna TAB 8.6 mg TAB PO SCH (20:36)
[2020-06-12] MEDS: Ibuprofen PED LIQ 100 MG/5 ML UDC PO PRN ×2 (00:05→09:13)
[2020-06-12] MEDS: Docusate LIQ 100 MG/10 ML UDC PO SCH ×2 (09:10→19:40)
[2020-06-12] MEDS: Nicotine PATCH 14 MG/24 HR PATCH TRANSDERM SCH (09:10)
[2020-06-12] MEDS: Potassium Chloride LIQUID 20 MEQ/15 ML LIQUID PO SCH ×2 (09:10→19:40)
[2020-06-12] MEDS: Senna TAB 8.6 mg TAB PO SCH (19:40)
[2020-06-13] MEDS: Ibuprofen PED LIQ 100 MG/5 ML UDC PO PRN ×2 (03:25→17:46)
[2020-06-13] MEDS: Nicotine PATCH 14 MG/24 HR PATCH TRANSDERM SCH (08:12)
[2020-06-13] MEDS: Docusate LIQ 100 MG/10 ML UDC PO SCH ×2 (08:13→21:18)
[2020-06-13] MEDS: Potassium Chloride LIQUID 20 MEQ/15 ML LIQUID PO SCH ×2 (08:13→21:06)
[2020-06-13] MEDS: Senna TAB 8.6 mg TAB PO SCH (21:06)
[2020-06-14] MEDS: Ibuprofen PED LIQ 100 MG/5 ML UDC PO PRN (08:54)
[2020-06-14] MEDS: Potassium Chloride LIQUID 20 MEQ/15 ML LIQUID PO SCH ×2 (08:54→21:14)
[2020-06-14] MEDS: Nicotine PATCH 14 MG/24 HR PATCH TRANSDERM SCH (08:55)
[2020-06-14] MEDS: Docusate LIQ 100 MG/10 ML UDC PO SCH ×2 (09:10→21:14)
[2020-06-14] MEDS: Senna TAB 8.6 mg TAB PO SCH (21:13)
[2020-06-15] MEDS: Docusate LIQ 100 MG/10 ML UDC PO SCH ×2 (09:14→21:57)
[2020-06-15] MEDS: Potassium Chloride LIQUID 20 MEQ/15 ML LIQUID PO SCH ×2 (09:14→21:57)
[2020-06-15] MEDS: Nicotine PATCH 14 MG/24 HR PATCH TRANSDERM SCH (12:09)
[2020-06-15] MEDS: Senna TAB 8.6 mg TAB PO SCH (21:56)
[2020-06-15] MEDS: Ibuprofen PED LIQ 100 MG/5 ML UDC PO PRN (23:00)
[2020-06-16] MEDS: Potassium Chloride LIQUID 20 MEQ/15 ML LIQUID PO SCH ×2 (07:43→20:17)
[2020-06-16] MEDS: Nicotine PATCH 14 MG/24 HR PATCH TRANSDERM SCH (07:43)
[2020-06-16] MEDS: Docusate LIQ 100 MG/10 ML UDC PO SCH ×2 (07:43→20:14)
[2020-06-16] MEDS: Ibuprofen PED LIQ 100 MG/5 ML UDC PO PRN (08:00)
[2020-06-16] MEDS: Senna TAB 8.6 mg TAB PO SCH (20:15)
[2020-06-17] MEDS: Ibuprofen PED LIQ 100 MG/5 ML UDC PO PRN ×2 (00:56→20:19)
[2020-06-17] MEDS: Potassium Chloride LIQUID 20 MEQ/15 ML LIQUID PO SCH ×2 (08:22→20:23)
[2020-06-17] MEDS: Docusate LIQ 100 MG/10 ML UDC PO SCH ×2 (08:22→20:23)
[2020-06-17] MEDS: Nicotine PATCH 14 MG/24 HR PATCH TRANSDERM SCH (08:22)
[2020-06-17] MEDS: Senna TAB 8.6 mg TAB PO SCH (20:14)
[2020-06-18] MEDS: Ibuprofen PED LIQ 100 MG/5 ML UDC PO PRN (03:37)
[2020-06-18] MEDS: Potassium Chloride LIQUID 20 MEQ/15 ML LIQUID PO SCH ×2 (07:14→20:47)
[2020-06-18] MEDS: Docusate LIQ 100 MG/10 ML UDC PO SCH ×2 (07:14→20:47)
[2020-06-18] MEDS: Nicotine PATCH 14 MG/24 HR PATCH TRANSDERM SCH (07:18)
[2020-06-18] MEDS: Senna TAB 8.6 mg TAB PO SCH (20:52)
[2020-06-19] MEDS: Nicotine PATCH 14 MG/24 HR PATCH TRANSDERM SCH (08:34)
[2020-06-19] MEDS: Docusate LIQ 100 MG/10 ML UDC PO SCH ×3 (08:34→21:46)
[2020-06-19] MEDS: Potassium Chloride LIQUID 20 MEQ/15 ML LIQUID PO SCH ×2 (08:38→21:33)
[2020-06-19] MEDS: Senna TAB 8.6 mg TAB PO SCH (21:34)
[2020-06-20 07:26] LABS: ABS Basophils 0.1 10^3/ul (0-0.2); ABS Eosinophils 0.6 10^3/ul (0-0.6); ABS Lymphocytes 2.6 10^3/ul (1.0-4.8); ABS Monocytes 0.6 10^3/ul (0-0.8); ABS Neutrophils 5.4 10^3/ul (1.5-7.7); Eosinophil % 5.9 %; Hematocrit 41 % (35-47); Hemoglobin 13.5 g/dL (12.0-16.0); Lymphocyte % 28.1 %; Mean Corpuscular HGB Conc 33 g/dL (31-36); Mean Corpuscular Hemoglobin 30 pg (27-31); Mean Corpuscular Volume 91 fL (80-97); Mean Platelet Volume 7.6 fL (7.4-10.4); Platelet Count 347 10^3/uL (150-450); Red Blood Count 4.45 10^6 /uL (3.70-4.87); Red Cell Distribution Width 13 % (10-15); White Blood Count 9.3 10^3/uL (3.5-10.8)
[2020-06-20 07:37] LABS: Albumin 3.7 g/dL (3.2-5.2); Albumin/Globulin Ratio 1.3 (1-3); BUN/Creatinine Ratio 27.3 (8-20); Calcium 9.7 mg/dL (8.6-10.3); Globulin 2.8 g/dL (2-4); Potassium 3.3 mmol/L (3.5-5.0); Total Bilirubin 0.7 mg/dL (0.2-1.0); Total Protein 6.5 g/dL (6.4-8.9)
[2020-06-20] MEDS: Docusate LIQ 100 MG/10 ML UDC PO SCH ×3 (08:44→22:31)
[2020-06-20] MEDS: Nicotine PATCH 14 MG/24 HR PATCH TRANSDERM SCH (08:45)
[2020-06-20] MEDS: Potassium Chloride LIQUID 20 MEQ/15 ML LIQUID PO SCH ×2 (08:45→21:50)
[2020-06-20] MEDS: Ibuprofen PED LIQ 100 MG/5 ML UDC PO PRN (12:18)
[2020-06-20 20:17] LABS: Magnesium 1.5 mg/dL (1.9-2.7)
[2020-06-20] MEDS: Senna TAB 8.6 mg TAB PO SCH ×2 (21:51→22:29)
[2020-06-21] MEDS: Ibuprofen PED LIQ 100 MG/5 ML UDC PO PRN ×2 (06:20→20:27)
[2020-06-21] MEDS: Docusate LIQ 100 MG/10 ML UDC PO SCH ×2 (10:00→20:21)
[2020-06-21] MEDS: Nicotine PATCH 14 MG/24 HR PATCH TRANSDERM SCH (10:01)
[2020-06-21] MEDS: Potassium Chloride LIQUID 20 MEQ/15 ML LIQUID PO SCH ×3 (10:02→20:17)
[2020-06-21] MEDS: Senna TAB 8.6 mg TAB PO SCH (20:18)
[2020-06-22] MEDS: Ibuprofen PED LIQ 100 MG/5 ML UDC PO PRN (04:50)
[2020-06-22] MEDS: Docusate LIQ 100 MG/10 ML UDC PO SCH ×2 (09:25→20:25)
[2020-06-22] MEDS: Potassium Chloride LIQUID 20 MEQ/15 ML LIQUID PO SCH ×3 (09:26→20:40)
[2020-06-22] MEDS: Nicotine PATCH 14 MG/24 HR PATCH TRANSDERM SCH (09:26)
[2020-06-22] MEDS: Senna TAB 8.6 mg TAB PO SCH (20:26)
[2020-06-23] MEDS: Ibuprofen PED LIQ 100 MG/5 ML UDC PO PRN (04:14)
[2020-06-23] MEDS: Docusate LIQ 100 MG/10 ML UDC PO SCH ×2 (08:05→20:50)
[2020-06-23] MEDS: Potassium Chloride LIQUID 20 MEQ/15 ML LIQUID PO SCH ×3 (08:05→20:50)
[2020-06-23] MEDS: Nicotine PATCH 14 MG/24 HR PATCH TRANSDERM SCH (08:06)
[2020-06-23] MEDS: Senna TAB 8.6 mg TAB PO SCH (20:50)
[2020-06-24] MEDS: Docusate LIQ 100 MG/10 ML UDC PO SCH ×2 (08:09→21:04)
[2020-06-24] MEDS: Nicotine PATCH 14 MG/24 HR PATCH TRANSDERM SCH (08:09)
[2020-06-24] MEDS: Potassium Chloride LIQUID 20 MEQ/15 ML LIQUID PO SCH ×3 (08:09→21:04)
[2020-06-24] MEDS: Ibuprofen PED LIQ 100 MG/5 ML UDC PO PRN (17:24)
[2020-06-24] MEDS: Senna TAB 8.6 mg TAB PO SCH (21:08)
[2020-06-25] MEDS: Ibuprofen PED LIQ 100 MG/5 ML UDC PO PRN ×2 (09:07→19:08)
[2020-06-25] MEDS: Potassium Chloride LIQUID 20 MEQ/15 ML LIQUID PO SCH ×3 (09:09→22:04)
[2020-06-25] MEDS: Nicotine PATCH 14 MG/24 HR PATCH TRANSDERM SCH (09:12)
[2020-06-25] MEDS ORDERED: COVID-19 VACCINE, MRNA(MODERNA)/PF 100 MCG/0.5 ML IM ONE (10:00)
[2020-06-25] MEDS: Docusate LIQ 100 MG/10 ML UDC PO SCH ×2 (14:08→22:04)
[2020-06-25] MEDS: Senna TAB 8.6 mg TAB PO SCH (22:04)
[2020-06-26] MEDS: Potassium Chloride LIQUID 20 MEQ/15 ML LIQUID PO SCH ×3 (08:33→21:16)
[2020-06-26] MEDS: Docusate LIQ 100 MG/10 ML UDC PO SCH ×2 (08:33→21:16)
[2020-06-26] MEDS: Nicotine PATCH 14 MG/24 HR PATCH TRANSDERM SCH (08:34)
[2020-06-26] MEDS: Ibuprofen PED LIQ 100 MG/5 ML UDC PO PRN ×2 (08:54→21:18)
[2020-06-26] MEDS: Senna TAB 8.6 mg TAB PO SCH (21:13)
[2020-06-27] MEDS: Docusate LIQ 100 MG/10 ML UDC PO SCH ×2 (07:34→20:21)
[2020-06-27] MEDS: Nicotine PATCH 14 MG/24 HR PATCH TRANSDERM SCH (07:34)
[2020-06-27] MEDS: Potassium Chloride LIQUID 20 MEQ/15 ML LIQUID PO SCH ×3 (07:34→20:21)
[2020-06-27 07:44] LABS: Albumin 3.5 g/dL (3.2-5.2); Albumin/Globulin Ratio 1.3 (1-3); BUN/Creatinine Ratio 22.1 (8-20); Calcium 9.8 mg/dL (8.6-10.3); EGFR African American 87.1 (>60); EGFR Non-African American 71.9 (>60); Globulin 2.6 g/dL (2-4); Potassium 3.5 mmol/L (3.5-5.0); Total Bilirubin 0.6 mg/dL (0.2-1.0); Total Protein 6.1 g/dL (6.4-8.9)
[2020-06-27 07:53] LABS: ABS Basophils 0.1 10^3/ul (0-0.2); ABS Eosinophils 0.9 10^3/ul (0-0.6); ABS Lymphocytes 1.4 10^3/ul (1.0-4.8); ABS Monocytes 0.6 10^3/ul (0-0.8); ABS Neutrophils 3.4 10^3/ul (1.5-7.7); Eosinophil % 13.9 %; Hematocrit 40 % (35-47); Hemoglobin 13.3 g/dL (12.0-16.0); Lymphocyte % 22.7 %; Mean Corpuscular HGB Conc 34 g/dL (31-36); Mean Corpuscular Hemoglobin 31 pg (27-31); Mean Corpuscular Volume 92 fL (80-97); Nucleated Red Blood Cells % 0.1; Platelet Count 296 10^3/uL (150-450); Red Blood Count 4.35 10^6 /uL (3.70-4.87); Red Cell Distribution Width 13 % (10-15); White Blood Count 6.4 10^3/uL (3.5-10.8)
[2020-06-27] MEDS: Ibuprofen PED LIQ 100 MG/5 ML UDC PO PRN (16:44)
[2020-06-27] MEDS: Senna TAB 8.6 mg TAB PO SCH (20:13)
[2020-06-28] MEDS: Ibuprofen PED LIQ 100 MG/5 ML UDC PO PRN ×2 (01:31→12:23)
[2020-06-28] MEDS: Potassium Chloride LIQUID 20 MEQ/15 ML LIQUID PO SCH ×3 (08:09→20:25)
[2020-06-28] MEDS: Nicotine PATCH 14 MG/24 HR PATCH TRANSDERM SCH (08:09)
[2020-06-28] MEDS: Docusate LIQ 100 MG/10 ML UDC PO SCH ×2 (08:09→20:25)
[2020-06-28] MEDS: Senna TAB 8.6 mg TAB PO SCH (20:25)
[2020-06-29] MEDS: Docusate LIQ 100 MG/10 ML UDC PO SCH ×2 (08:24→20:06)
[2020-06-29] MEDS: Potassium Chloride LIQUID 20 MEQ/15 ML LIQUID PO SCH ×3 (08:24→20:06)
[2020-06-29] MEDS: Nicotine PATCH 14 MG/24 HR PATCH TRANSDERM SCH (09:06)
[2020-06-29] MEDS: Ibuprofen PED LIQ 100 MG/5 ML UDC PO PRN ×2 (11:07→18:28)
[2020-06-29] MEDS: Senna TAB 8.6 mg TAB PO SCH (20:06)
[2020-06-30] MEDS: Docusate LIQ 100 MG/10 ML UDC PO SCH ×2 (08:26→20:58)
[2020-06-30] MEDS: Potassium Chloride LIQUID 20 MEQ/15 ML LIQUID PO SCH ×3 (08:27→20:57)
[2020-06-30] MEDS: Nicotine PATCH 14 MG/24 HR PATCH TRANSDERM SCH (08:27)
[2020-06-30] MEDS: Ibuprofen PED LIQ 100 MG/5 ML UDC PO PRN ×2 (10:05→20:58)
[2020-06-30] MEDS: Senna TAB 8.6 mg TAB PO SCH (20:51)
[2020-07-01] MEDS: Ibuprofen PED LIQ 100 MG/5 ML UDC PO PRN ×3 (04:45→20:13)
[2020-07-01] MEDS ORDERED: Potassium Chlor 20 meq TAB.ER PO SCH (09:00)
[2020-07-01] MEDS: Docusate LIQ 100 MG/10 ML UDC PO SCH ×2 (10:10→20:50)
[2020-07-01] MEDS: Nicotine PATCH 14 MG/24 HR PATCH TRANSDERM SCH (12:26)
[2020-07-01] MEDS: Senna TAB 8.6 mg TAB PO SCH (20:49)
[2020-07-01] MEDS: Potassium Chloride LIQUID 20 MEQ/15 ML LIQUID PO SCH (20:50)
[2020-07-02] MEDS: Ibuprofen PED LIQ 100 MG/5 ML UDC PO PRN ×2 (05:50→21:26)
[2020-07-02] MEDS: Docusate LIQ 100 MG/10 ML UDC PO SCH ×2 (08:22→21:28)
[2020-07-02] MEDS: Potassium Chloride LIQUID 20 MEQ/15 ML LIQUID PO SCH ×2 (08:22→21:28)
[2020-07-02] MEDS: Nicotine PATCH 14 MG/24 HR PATCH TRANSDERM SCH (08:24)
[2020-07-02] MEDS: Senna TAB 8.6 mg TAB PO SCH (21:29)
[2020-07-03 05:02] VITALS: BP 131/61
[2020-07-03] MEDS: Docusate LIQ 100 MG/10 ML UDC PO SCH (09:09)
[2020-07-03] MEDS: Potassium Chloride LIQUID 20 MEQ/15 ML LIQUID PO SCH (09:10)
[2020-07-03] MEDS: Nicotine PATCH 14 MG/24 HR PATCH TRANSDERM SCH (09:10)
[2020-07-03] MEDS: Ibuprofen PED LIQ 100 MG/5 ML UDC PO PRN (09:11)
== END 2020-07-03 14:56 | disposition home health service (06) | DRG 57 ==
LOC: PMRU 15:30
PROVIDERS: ADMIT Physical Medicine & Rehabilitation; ATTEND Physical Medicine & Rehabilitation